=== PATIENT | female | born 1995 | race Caucasian/White ===

== ENCOUNTER 2017-03-11 18:20 | Emergency (ER) | payer OTHER ==
[2017-03-11 18:25] VITALS: BMI 27.8
[2017-03-11] MEDS ORDERED: DEXTROSE 5%-LACTATED RINGERS 500 ML IV ONE (20:30)
[2017-03-11 20:42] VITALS: BP 121/67; PULSE 90; TEMP 98.8
[2017-03-11] MEDS: BETAMET ACET/BETAMET NA PH 30 MG/5 ML VIAL IM ONE (21:10)
[2017-03-11] MEDS ORDERED: DEXTROSE 5%-LACTATED RINGERS 1,000 ML IV SCH (21:30)
[2017-03-11] MEDS ORDERED: AMPICILLIN - 2 GM in SODIUM CHLORIDE 100 ML IVPB ONE (21:30)
[2017-03-11 21:51] LABS: URINE APPEARANCE SLCLOUDY; URINE BILIRUBIN NEGATIVE (NEGATIVE); URINE BLOOD NEGATIVE (NEGATIVE); URINE COLOR DKYELLOW; URINE GLUCOSE (UA) NEGATIVE (NEGATIVE); URINE KETONE NEGATIVE (NEGATIVE); URINE LEUK ESTERASE TRACE (NEGATIVE); URINE NITRITE NEGATIVE (NEGATIVE); URINE PROTEIN NEGATIVE (NEGATIVE); URINE UROBILINOGEN NEGATIVE mg/dL (0.2-1.0)
[2017-03-11 21:53] LABS: URINE MUCUS RARE; URINE RBC 1/HPF /hpf (0-3); URINE WBC 5/HPF /hpf (3-5)
[2017-03-12] MEDS: BETAMET ACET/BETAMET NA PH 30 MG/5 ML VIAL IM ONE (19:55)
== END 2017-03-12 00:20 | disposition home or self-care (01) ==
LOC: JER 18:20
DX: O26.893 Other specified pregnancy related conditions, third trimester (principal); Z3A.28 28 weeks gestation of pregnancy
CPT/HCPCS: 76815-TC; 76817-TC; 81003; 81015; 87086; 99281-25

== ENCOUNTER 2017-11-19 07:28 | Emergency (ER) | payer OTHER ==
[2017-11-19 08:35] VITALS: BP 157/78; PULSE 90; TEMP 98.2; BMI 26.6
--- NOTE | 2017-11-19 09:03 | PDOC ---
History of Present Illness - General Chief Complaint: Shortness of Breath Stated Complaint: S.O.B. Time Seen by Provider: 11/19/17 08:40 History Source: Patient Exam Limitations: No Limitations - History of Present Illness Initial Comments: 11/19/17 08:59 This is a 21-year-old female without significant medical history of seizures presents to the emergency departments with 4 days of progressively worsening epigastric pain. She states the pain came on suddenly with a level of 4/10 and is slowly progressed over the 4 days to currently 9/and. Patient states pain worsens with deep inspiration, swallowing, coughing. Patient states she has associated chest tightness with this epigastric pain. Patient tried taking over- the-counter medication with minimal relief of symptoms. Patient reports having a dry cough as well. She denies fevers, chills, nausea, vomiting. Past History - Past Medical History Allergies/Adverse Reactions: Allergies Allergy/AdvReac Type Severity Reaction Status Date / Time No Known Allergies Allergy Verified 11/19/17 08:33 Home Medications: Ambulatory Orders Ethosuximide 250 mg PO BID 05/01/17 Asthma: No Cancer: No Cardiac Disorders: No COPD: No Diabetes: No HTN: No Seizures: Yes (UNDER CARE DR BILLINGSLEY) Thyroid Disease: No - Reproductive History (#): 2 Para: 0 Therapeutic (s) & number: (1) Spontaneous : 0 - Immunization History Immunization Up to Date: Yes - Suicide/Smoking/Psychosocial Hx Smoking History: Never smoked Have you smoked in the past 12 months: No Information on smoking cessation initiated: No Hx Alcohol Use: No Drug/Substance Use Hx: No Substance Use Type: None Hx Substance Use Treatment: No Review of Systems - Review of Systems Able to Perform ROS?: Yes Is the patient limited Marshallese proficient: No Constitutional: No: Symptoms Reported HEENTM: No: Symptoms Reported Respiratory: Yes: See HPI Cardiac (ROS): No: Symptoms Reported ABD/GI: Yes: See HPI : No: Symptoms Reported Musculoskeletal: No: Symptoms Reported Integumentary: No: Symptoms Reported Neurological: No: Symptoms reported Endocrine: No: Symptoms Reported Hematologic/Lymphatic: No: Symptoms Reported *Physical Exam - Vital Signs Last Vital Signs Temp Pulse Resp BP Pulse Ox 98.2 F 90 20 157/78 100 11/19/17 08:33 11/19/17 08:33 11/19/17 08:33 11/19/17 08:33 11/19/17 08:33 - Physical Exam General Appearance: Yes: Appropriately Dressed. No: Apparent Distress HEENT: positive: Normal ENT Inspection Neck: positive: Trachea midline, Supple Respiratory/Chest: positive: Lungs Clear, Normal Breath Sounds. negative: Respiratory Distress, Accessory Muscle Use Cardiovascular: positive: Regular Rhythm, Regular Rate. negative: Murmur Gastrointestinal/Abdominal: positive: Normal Bowel Sounds, Tender (epigastrum), Soft Extremity: positive: Normal Capillary Refill, Normal Inspection Integumentary: positive: Normal Color, Dry, Warm Neurologic: positive: Alert, Normal Response ED Treatment Course - LABORATORY CBC & Chemistry Diagram: 11/19/17 09:00 11/19/17 09:00 Medical Decision Making - Medical Decision Making 11/19/17 09:03 A/P: 21-year-old woman with 4 days of epigastric pain and chest tightness Lungs clear to auscultation bilaterally No chest tenderness elicited. Tenderness to the epigastric region EKG, chest x-ray, urine, labs, ultrasound 11/19/17 11:22 Ultrasound as read by Dr. Rich: Unremarkable examination. No gallstones are identified. Chest x-rays read by Dr. Rich: Frontal view of the chest was obtained. Compared to prior chest x-ray dated 04/2017 the cardiac silhouette is within normal limits in size. The lungs are clear. Mediastinum and visualized osseous structures appear intact. Impression: Unremarkable examination. EKG is sinus rhythm the rate of 82. Normal intervals noted Laboratory testing notable for elevated WBC at 13.9 without shift. This is likely reactive. Troponin is less than 0.02. I will discharge the patient home to continue follow-up with her primary doctor. Patient verbalized understanding of discharge instructions. *DC/Admit/Observation/Transfer Diagnosis at time of Disposition: Gastritis Qualifiers: Gastritis type: unspecified gastritis Chronicity: acute Gastritis bleeding: presence of bleeding unspecified Qualified Code(s): K29.00 - Acute gastritis without bleeding - Discharge Dispostion Disposition: HOME Condition at time of disposition: Stable Decision to Admit order: No - Referrals Referrals: Freedom Sears MD [Primary Care Provider] - - Patient Instructions Printed Discharge Instructions: DI for Gastritis Additional Instructions: Eat a bland diet until symptoms have resolved. Make an appointment with her primary doctor for continued evaluation. Talk to your primary care doctor about a referral for a base loader for continued evaluation. Return to emergency department for any persistent or worsening symptoms. Thank you very much for choosing a provider emergent health care needs. - Post Discharge Activity
[2017-11-19 09:28] LABS: BASO % 0.3 % (0-2.0); HEMATOCRIT 41.9 % (32.4-45.2); HEMOGLOBIN 13.7 GM/dL (10.7-15.3); LYMPH % 10.7 % (8-40); MCH 28.8 pg (25.7-33.7); MCHC 32.6 g/dl (32.0-36.0); MEAN CELL VOLUME 88.3 fl (80-96); MEAN PLT VOLUME 8.9 fl (7.5-11.1); MONO % 7.1 % (3.8-10.2); NEUT % 78.9 % (42.8-82.8); PLATELET COUNT 284 K/MM3 (134-434); RBC 4.74 M/mm3 (3.60-5.2); WHITE BLOOD COUNT 13.9 K/mm3 (4.0-10.0)
[2017-11-19 09:49] LABS: ALBUMIN 3.7 g/dl (3.4-5.0); ALK PHOS 127 U/L (45-117); ANION GAP 5 (8-16); BILIRUBIN,TOTAL 0.3 mg/dL (0.2-1.0); BLOOD UREA NITROGEN 8 mg/dL (7-18); CALCIUM 8.5 mg/dL (8.5-10.1); CHLORIDE 104 mmol/L (98-107); CO2 28 mmol/L (21-32); CREATININE 0.7 mg/dL (0.55-1.02); GLUCOSE,RANDOM 122 mg/dL (74-106); LIPASE 121 U/L (73-393); POTASSIUM 4.3 mmol/L (3.5-5.1); SGOT/AST 11 U/L (15-37); SGPT/ALT 16 U/L (12-78); SODIUM 137 mmol/L (136-145); TOT PROT 7.2 g/dl (6.4-8.2)
[2017-11-19 10:07] LABS: URINE APPEARANCE SLCLOUDY; URINE BILIRUBIN NEGATIVE (<2.0 mg/dL); URINE COLOR YELLOW; URINE GLUCOSE (UA) NEGATIVE (NEGATIVE); URINE KETONE NEGATIVE (NEGATIVE); URINE NITRITE NEGATIVE (NEGATIVE); URINE PROTEIN NEGATIVE (NEGATIVE); URINE UROBILINOGEN NEGATIVE mg/dL (0.2-1.0)
[2017-11-19 10:11] LABS: URINE LEUK ESTERASE 2+ (NEGATIVE)
[2017-11-19 10:13] LABS: EPI CELLS FEW /HPF (FEW); URINE MUCUS MODERATE
[2017-11-19] MEDS ORDERED: MAG HYDROX/AL HYDROX/SIMETH 30 ML UNIT-DOSE CUP PO ONE (10:47)
[2017-11-19] MEDS ORDERED: MAG HYDROX/AL HYDROX/SIMETH 30 ML UNIT-DOSE CUP ONE (10:47)
[2017-11-19] MEDS ORDERED: LIDOCAINE VISCOUS 2% ORAL/TOP 20 ML UNIT-DOSE CUP MM ONE (10:47)
[2017-11-19] MEDS ORDERED: LIDOCAINE VISCOUS 2% ORAL/TOP 20 ML UNIT-DOSE CUP ONE (11:02)
--- NOTE | 2017-11-20 13:31 | EKG ---
Test Reason : Blood Pressure : / mmHG Vent. Rate : 077 BPM Atrial Rate : 077 BPM P-R Int : 120 ms QRS Dur : 080 ms QT Int : 360 ms P-R-T Axes : 058 -17 017 degrees QTc Int : 407 ms NORMAL SINUS RHYTHM NORMAL ECG NO PREVIOUS ECGS AVAILABLE Confirmed by MARILEE LILLY, ERNESTINA ([id number]) on 11/20/2017 1:30:48 PM Referred By: CON Confirmed By:ERNESTINA HUNT MD
== END 2017-11-19 11:30 | disposition home or self-care (01) ==
LOC: JER 07:28 → JERFT 07:28
DX: K29.00 Acute gastritis without bleeding (principal)
CPT/HCPCS: 36415; 71046-TC-FY; 76705-TC; 80053; 81003; 81015; 82550; 83690; 84484; 84703; 85025; 87086; 93005; 93010; 99281-25

== ENCOUNTER 2018-07-04 23:31 | Emergency (ER) | payer OTHER ==
[2018-07-05] MEDS ORDERED: IBUPROFEN 600 MG TABLET (FP) PO ONE ×2 (00:35→00:40)
--- NOTE | 2018-07-05 00:35 | PDOC ---
History of Present Illness - General Stated Complaint: COLD SYMPTOMS Time Seen by Provider: 07/04/18 23:53 History Source: Patient Exam Limitations: No Limitations - History of Present Illness Initial Comments: 07/05/18 01:23 Patient is a 22-year-old female with past medical history of asthma who presents to the ER for one day of fever, headache, cough and body aches. Patient states she took Motrin earlier this morning with some relief of her symptoms. She states she did not get a flu shot this year. Denies difficulty breathing, shortness of breath, chest pain, nausea, vomiting, diarrhea and constipation. Past History - Travel Traveled outside of the country in the last 30 days: No Close contact w/someone who was outside of country & ill: No - Past Medical History Allergies/Adverse Reactions: Allergies Allergy/AdvReac Type Severity Reaction Status Date / Time No Known Allergies Allergy Verified 07/05/18 00:44 Home Medications: Ambulatory Orders Ethosuximide 250 mg PO BID 05/01/17 Ibuprofen 800 mg PO TID #30 tablet 07/05/18 Oseltamivir Phosphate [Tamiflu] 75 mg PO BID #10 capsule 07/05/18 Asthma: No Cancer: No Cardiac Disorders: No COPD: No Diabetes: No HTN: No Seizures: Yes (UNDER CARE DR BILLINGSLEY) Thyroid Disease: No - Reproductive History (#): 2 Para: 0 Therapeutic (s) & number: (1) Spontaneous : 0 - Immunization History Immunization Up to Date: Yes - Suicide/Smoking/Psychosocial Hx Smoking History: Never smoked Have you smoked in the past 12 months: No Hx Alcohol Use: No Drug/Substance Use Hx: No Substance Use Type: None Hx Substance Use Treatment: No Review of Systems - Review of Systems Able to Perform ROS?: Yes Comments:: 07/05/18 01:22 CONSTITUTIONAL: Present: Fever, chills, body aches Absent: diaphoresis, generalized weakness, malaise, loss of appetite HEENT: Present: rhinorrhea, nasal congestion, throat pain. Absent: difficulty swallowing, mouth swelling, ear pain, eye pain, visual Changes CARDIOVASCULAR: Absent: chest pain, loss of consciousness, palpitations, irregular heart rate, peripheral edema RESPIRATORY: Present: Cough Absent: shortness of breath, dyspnea with exertion, orthopnea, wheezing, stridor, hemoptysis GASTROINTESTINAL: Absent: abdominal pain, abdominal distension, nausea, vomiting, diarrhea, constipation, melena, hematochezia SKIN: Absent: rash, itching, pallor NEUROLOGIC: Present: headache Absent: focal weakness or paresthesias, dizziness, unsteady gait, seizure, mental status changes, bladder or bowel incontinence Is the patient limited Greek proficient: No *Physical Exam - Physical Exam Comments: 07/05/18 01:23 GENERAL: Well developed, well nourished. Awake and alert. No acute distress. HEENT: Normocephalic, atraumatic. PERRLA, EOMI. No conjunctival pallor. Sclera are non- icteric. Moist mucous membranes. Oropharynx is clear. NECK: Supple. Full ROM. No JVD. Carotid pulses 2+ and symmetric, without bruits. No thyromegaly. No lymphadenopathy. CARDIOVASCULAR: Regular rate and rhythm. No murmurs, rubs, or gallops. Distal pulses are 2+ and symmetric. PULMONARY: No evidence of respiratory distress. Lungs clear to auscultation bilaterally. No wheezing, rales or rhonchi. ABDOMINAL: Soft. Non-tender. Non-distended. No rebound or guarding. No organomegaly. Normoactive bowel sounds. MUSCULOSKELETAL Normal range of motion at all joints. No bony deformities or tenderness. No CVA tenderness. EXTREMITIES: No cyanosis. No clubbing. No edema. No calf tenderness. SKIN: Warm and dry. Normal capillary refill. No rashes. No jaundice. NEUROLOGICAL: Alert, awake, appropriate. Cranial nerves 2-12 intact. No deficits to light touch and temperature in face, upper extremities and lower extremities. No motor deficits in the in face, upper extremities and lower extremities. Normoreflexic in the upper and lower extremities. Normal speech. Toes are down- going bilaterally. Gait is normal without ataxia. PSYCHIATRIC: Cooperative. Good eye contact. Appropriate mood and affect. Medical Decision Making - Medical Decision Making 07/05/18 01:21 Pt presents one day with fever, bodyaches and cough Lungs CTAB, -r/r/w Flu A positive Will treat with tamiflu Repeat temp DC home I discussed the physical exam findings, ancillary test results and final diagnoses with the patient. I answered all of the patient's questions. The patient was satisfied with the care received and felt comfortable with the discharge plan and treatment plan. The Patient agrees to follow up with the primary care physician/specialist within 24-72 hours. Return precautions were given. *DC/Admit/Observation/Transfer Diagnosis at time of Disposition: Influenza A - Discharge Dispostion Disposition: HOME Condition at time of disposition: Stable Decision to Admit order: No - Referrals Referrals: Brant Kim MD [Staff Physician] - - Patient Instructions Printed Discharge Instructions: DI for Influenza -- Adult Additional Instructions: You have the flu. This is a viral infection. Your symptoms will last for approximately 7-10 days. Please take the Tamiflu twice a day for 5 days to help reduce the symptoms of the flu. Please take Tylenol every 4 hours for fever. Do not take more than 4000 mg a day. Please take Motrin 600 mg every 6 hours for fever not to exceed 3000 mg a day. Please drink plenty of fluids and get plenty of rest. Follow-up with her primary care doctor this week. Return to the ER if you have difficulty breathing, shortness of breath, vomiting , or if you have any changes in your symptoms. - Post Discharge Activity Forms/Work/School Notes: Back to Work
[2018-07-05 00:44] VITALS: BP 128/74; PULSE 102; TEMP 102; BMI 32.0
== END 2018-07-05 01:47 | disposition home or self-care (01) ==
LOC: JER 23:31
DX: J09.X2 Influenza due to identified novel influenza A virus with other respiratory manifestations (principal); G40.909 Epilepsy, unspecified, not intractable, without status epilepticus
CPT/HCPCS: 87070; 87804; 87880; 99282-25

== ENCOUNTER 2018-10-04 00:12 | Emergency (ER) | payer OTHER ==
[2018-10-04 01:01] VITALS: BP 123/69; PULSE 112; TEMP 98.3; BMI 29.2
[2018-10-04] MEDS ORDERED: SODIUM CHLORIDE 0.9% 500 ML INFUS.BAG IV ONE (01:12)
--- NOTE | 2018-10-04 01:18 | PDOC ---
History of Present Illness - History of Present Illness Initial Comments: This patient is a 22 year old female with PMHx of seizures (well controlled, last one 3 yrs ago, sees neurologist every 3 mo.) , who presents with diarrhea since this morning. She states that she ate at a [place] restaurant this morning and reports multiple episode of diarrhea. Denies sick contacts. 10/04/18 02:07 <Cora Mcdaniels - Last Filed: 10/04/18 02:07> <Юлия Min - Last Filed: 10/04/18 05:19> - General Chief Complaint: Pain, Acute Stated Complaint: ABD PAIN Time Seen by Provider: 10/04/18 01:02 Past History <Cora Mcdaniels - Last Filed: 10/04/18 02:07> - Past Medical History Asthma: No Cancer: No Cardiac Disorders: No COPD: No Diabetes: No HTN: No Seizures: Yes (UNDER CARE DR BILLINGSLEY) Thyroid Disease: No - Reproductive History (#): 2 Para: 0 Therapeutic (s) & number: (1) Spontaneous : 0 - Immunization History Immunization Up to Date: Yes - Suicide/Smoking/Psychosocial Hx Smoking History: Never smoked Have you smoked in the past 12 months: No Information on smoking cessation initiated: No Hx Alcohol Use: No Drug/Substance Use Hx: No Substance Use Type: None Hx Substance Use Treatment: No <Юлия Min - Last Filed: 10/04/18 05:19> - Past Medical History Allergies/Adverse Reactions: Allergies Allergy/AdvReac Type Severity Reaction Status Date / Time No Known Allergies Allergy Verified 10/04/18 00:59 Home Medications: Ambulatory Orders Unobtainable 10/04/18 Review of Systems - Review of Systems Comments:: GENERAL/CONSTITUTIONAL: No fever or chills. No weakness. HEAD, EYES, EARS, NOSE AND THROAT: No change in vision. No ear pain or discharge. No sore throat. CARDIOVASCULAR: No chest pain or shortness of breath. RESPIRATORY: No cough, wheezing, or hemoptysis. GASTROINTESTINAL: No nausea, vomiting, + diarrhea. GENITOURINARY: No dysuria, frequency, or change in urination. MUSCULOSKELETAL: No joint or muscle swelling or pain. No neck or back pain. SKIN: No rash NEUROLOGIC: No headache, vertigo, loss of consciousness, or change in strength/ sensation. ENDOCRINE: No increased thirst. No abnormal weight change. HEMATOLOGIC/LYMPHATIC: No anemia, easy bleeding, or history of blood clots. ALLERGIC/IMMUNOLOGIC: No hives or skin allergy. <Cora Mcdaniels - Last Filed: 10/04/18 02:07> *Physical Exam - Vital Signs Last Vital Signs Temp Pulse Resp BP Pulse Ox 98.3 F 112 H 20 123/69 100 10/04/18 00:20 10/04/18 00:20 10/04/18 00:20 10/04/18 00:20 10/04/18 00:20 - Physical Exam Comments: GENERAL: Awake, alert, and fully oriented, in no acute distress HEAD: No signs of trauma EYES: PERRLA, EOMI, sclera anicteric, conjunctiva clear ENT: Auricles normal inspection, hearing grossly normal, nares patent, oropharynx clear without exudates. Moist mucosa NECK: Normal ROM, supple, no lymphadenopathy, JVD, or masses LUNGS: Breath sounds equal, clear to auscultation bilaterally. No wheezes, and no crackles HEART: Regular rate and rhythm, normal S1 and S2, no murmurs, rubs or gallops ABDOMEN: Soft, nontender, normoactive bowel sounds. No guarding, no rebound. No masses EXTREMITIES: Normal range of motion, no edema. No clubbing or cyanosis. No cords, erythema, or tenderness NEUROLOGICAL: Cranial nerves II through XII grossly intact. Normal speech, normal gait SKIN: Warm, Dry, normal turgor, no rashes or lesions noted. <Cora Mcdaniels - Last Filed: 10/04/18 02:07> - Vital Signs Last Vital Signs Temp Pulse Resp BP Pulse Ox 98.3 F 112 H 20 123/69 100 10/04/18 00:20 10/04/18 00:20 10/04/18 00:20 10/04/18 00:20 10/04/18 00:20 <Юлия Min - Last Filed: 10/04/18 05:19> ED Treatment Course - LABORATORY CBC & Chemistry Diagram: 10/04/18 01:45 10/04/18 01:45 - ADDITIONAL ORDERS Additional order review: 10/04/18 01:45 RBC 4.58 MCV 90.8 MCHC 33.7 RDW 13.7 MPV 9.5 Neutrophils % 76.4 Lymphocytes % 11.3 Monocytes % 6.6 Eosinophils % 5.4 H Basophils % 0.3 - Medications Given in the ED: ED Medications Discontinued Medications Generic Name Dose Route Start Last Admin Trade Name Armaan PRN Reason Stop Dose Admin Sodium Chloride 1,000 ml 10/04/18 01:12 10/04/18 01:26 Normal Saline - IV 10/04/18 01:13 1,000 ml ONCE ONE Administration <Cora Mcdaniels - Last Filed: 10/04/18 02:07> - LABORATORY CBC & Chemistry Diagram: 10/04/18 01:45 10/04/18 01:45 <Юлия Min - Last Filed: 10/04/18 05:19> Medical Decision Making - Medical Decision Making 10/04/18 05:18 Pt is preg positive; LMP last month. Pt likely has hyperemesis gravidum. She states that she will follow with her COUNTER PERSON <Юлия Min - Last Filed: 10/04/18 05:19> *DC/Admit/Observation/Transfer - Attestations Scribe Attestion: 10/04/18 02:12 Documentation prepared by Cora Mcdaniels, acting as medical aide for Юлия Min MD. <Cora Mcdaniels - Last Filed: 10/04/18 02:07> - Discharge Dispostion Decision to Admit order: No <Юлия Min - Last Filed: 10/04/18 05:19> Diagnosis at time of Disposition: Hyperemesis - Discharge Dispostion Disposition: HOME Condition at time of disposition: Stable - Patient Instructions Printed Discharge Instructions: DI for Hyperemesis Gravidarum
[2018-10-04 01:56] LABS: BASO % 0.3 % (0-2.0); EOS % 5.4 % (0-4.5); HEMATOCRIT 41.6 % (32.4-45.2); LYMPH % 11.3 % (8-40); MCH 30.6 pg (25.7-33.7); MCHC 33.7 g/dl (32.0-36.0); MEAN CELL VOLUME 90.8 fl (80-96); MEAN PLT VOLUME 9.5 fl (7.5-11.1); MONO % 6.6 % (3.8-10.2); NEUT % 76.4 % (42.8-82.8); PLATELET COUNT 217 K/MM3 (134-434); RBC 4.58 M/mm3 (3.60-5.2); RDW 13.7 % (11.6-15.6); WHITE BLOOD COUNT 10.2 K/mm3 (4.0-10.0)
[2018-10-04 02:20] LABS: ALBUMIN 3.5 g/dl (3.4-5.0); ALK PHOS 102 U/L (45-117); ANION GAP 9 MMOL/L (8-16); BILIRUBIN,TOTAL 0.2 mg/dL (0.2-1); BLOOD UREA NITROGEN 7 mg/dL (7-18); CALCIUM 8.3 mg/dL (8.5-10.1); CHLORIDE 103 mmol/L (98-107); CO2 25 mmol/L (21-32); CREATININE 0.5 mg/dL (0.55-1.3); GLUCOSE,RANDOM 88 mg/dL (74-106); POTASSIUM 3.7 mmol/L (3.5-5.1); SGOT/AST 26 U/L (15-37); SGPT/ALT 26 U/L (13-61); SODIUM 137 mmol/L (136-145); TOT PROT 6.9 g/dl (6.4-8.2)
== END 2018-10-04 03:15 | disposition home or self-care (01) ==
LOC: JER 00:12
DX: O26.891 Other specified pregnancy related conditions, first trimester (principal); O21.0 Mild hyperemesis gravidarum; Z3A.01 Less than 8 weeks gestation of pregnancy
CPT/HCPCS: 36415; 80053; 84703; 85025; 99282-25

== ENCOUNTER 2019-01-19 13:28 | Emergency (ER) | payer OTHER ==
[2019-01-19 13:37] VITALS: BP 119/72; PULSE 103; TEMP 98.3; BMI 28.2
[2019-01-19] MEDS ORDERED: IBUPROFEN 600 MG TABLET (FP) PO ONE ×2 (14:23→14:35)
--- NOTE | 2019-01-19 15:15 | PDOC ---
History of Present Illness - General Chief Complaint: Sore Throat Stated Complaint: SORE THROAT Time Seen by Provider: 01/19/19 14:15 History Source: Patient Exam Limitations: No Limitations Past History - Past Medical History Allergies/Adverse Reactions: Allergies Allergy/AdvReac Type Severity Reaction Status Date / Time No Known Allergies Allergy Verified 11/17/18 13:43 Home Medications: Ambulatory Orders Amox-Tr/K Cl [Augmentin - 875Mg Tablet] 1 tab PO BID #20 tablet 11/17/18 Budesonide [Rhinocort Allergy] 1 spray NS ONCE #1 spray.pump 11/17/18 Asthma: No Cancer: No Cardiac Disorders: No COPD: No Diabetes: No HTN: No Seizures: Yes (UNDER CARE DR BILLINGSLEY) Thyroid Disease: No - Reproductive History (#): 2 Para: 0 Therapeutic (s) & number: (1) Spontaneous : 0 - Immunization History Immunization Up to Date: Yes - Suicide/Smoking/Psychosocial Hx Smoking History: Never smoked Have you smoked in the past 12 months: No Hx Alcohol Use: No Drug/Substance Use Hx: No Substance Use Type: None Hx Substance Use Treatment: No *Physical Exam - Vital Signs Last Vital Signs Temp Pulse Resp BP Pulse Ox 98.3 F 103 H 18 119/72 100 01/19/19 13:34 01/19/19 13:34 01/19/19 13:34 01/19/19 13:34 01/19/19 13:34 - Physical Exam General Appearance: No: Apparent Distress HEENT: positive: Normal Voice, Pharyngeal Erythema. negative: Muffled/Hoarse voice, Tonsillar Exudate, Tonsillar Erythema Respiratory/Chest: positive: Lungs Clear, Normal Breath Sounds. negative: Respiratory Distress Cardiovascular: positive: Regular Rhythm, Regular Rate, S1, S2. negative: Murmur Gastrointestinal/Abdominal: positive: Soft. negative: Tender Neurologic: positive: Alert ED Treatment Course - Medications Given in the ED: ED Medications Discontinued Medications Generic Name Dose Route Start Last Admin Trade Name Freq PRN Reason Stop Dose Admin Ibuprofen 600 mg 01/19/19 14:23 01/19/19 14:36 Motrin - PO 01/19/19 14:24 600 mg ONCE ONE Administration Medical Decision Making - Medical Decision Making 23 y/o F with hx of seizures, asthma presents with body aches and throat pain from last night. Denies fever, cough, congestion, sob, cp, abd pain, n/v. Has not tried taking anything for pain. Did not take any antipyretics today No concern for strep based on exam Likely viral pharyngitis Supportive care discussed Stable for dc 01/19/19 15:09 *DC/Admit/Observation/Transfer Diagnosis at time of Disposition: Viral pharyngitis - Discharge Dispostion Disposition: HOME Condition at time of disposition: Stable Decision to Admit order: No - Referrals - Patient Instructions Printed Discharge Instructions: DI for Viral Pharyngitis Additional Instructions: Thank you for choosing [facility]. It was a pleasure taking care of you. You may take Motrin 600 mg every 6 hours by mouth as needed for mild to moderate pain. Take Motrin with food. Do salt water gargles to help with throat discomfort You may also use lozenges. Follow-up with your doctor in 2 days Return to the Emergency Department if your symptoms worsen or persist or have other concerning symptoms. - Post Discharge Activity
== END 2019-01-19 16:15 | disposition home or self-care (01) ==
LOC: JERFT 13:28
DX: J02.9 Acute pharyngitis, unspecified (principal); B97.89 Other viral agents as the cause of diseases classified elsewhere
CPT/HCPCS: 99281-25

== ENCOUNTER 2019-03-03 15:21 | Emergency (ER) | payer OTHER ==
--- NOTE | 2019-03-03 15:26 | PDOC ---
Rapid Medical Evaluation Time Seen by Provider: 03/03/19 15:22 Medical Evaluation: Allergies Allergy/AdvReac Type Severity Reaction Status Date / Time No Known Allergies Allergy Verified 03/03/19 15:22 03/03/19 15:22 Pt presents to the ER for vaginal bleeding. She states that she was told yesterday that she was by her OB. She notes that she had bleeding this morning with clots. LMP 8/2 Exam: NAD, lower abdominal discomfort Orders: labs, TVUS Pt to proceed to the ER for further evaluation Discharge Disposition - Diagnosis Bleeding in early - Referrals - Patient Instructions - Post Discharge Activity
[2019-03-03 15:27] VITALS: BP 134/60; PULSE 98; TEMP 98.2; BMI 28.4
[2019-03-03 16:00] LABS: BASO % 0.9 % (0-2.0); EOS % 2.1 % (0-4.5); HEMATOCRIT 40.2 % (32.4-45.2); HEMOGLOBIN 13.5 GM/dL (10.7-15.3); LYMPH % 15.9 % (8-40); MCHC 33.5 g/dl (32.0-36.0); MEAN CELL VOLUME 89.5 fl (80-96); MEAN PLT VOLUME 9.3 fl (7.5-11.1); MONO % 6.7 % (3.8-10.2); NEUT % 74.4 % (42.8-82.8); PLATELET COUNT 258 K/MM3 (134-434); RDW 13.3 % (11.6-15.6); WHITE BLOOD COUNT 8.4 K/mm3 (4.0-10.0)
[2019-03-03 16:31] LABS: ALBUMIN 3.5 g/dl (3.4-5.0); BILIRUBIN,TOTAL 0.2 mg/dL (0.2-1); BLOOD UREA NITROGEN 6.4 mg/dL (7-18); CALCIUM 8.6 mg/dL (8.5-10.1); CREATININE 0.7 mg/dL (0.55-1.3); TOT PROT 6.6 g/dl (6.4-8.2)
[2019-03-03 17:06] LABS: URINE APPEARANCE CLEAR; URINE BILIRUBIN NEGATIVE (NEGATIVE); URINE COLOR YELLOW; URINE GLUCOSE (UA) NEGATIVE (NEGATIVE); URINE KETONE TRACE (NEGATIVE); URINE LEUK ESTERASE NEGATIVE (NEGATIVE); URINE NITRITE NEGATIVE (NEGATIVE); URINE PROTEIN NEGATIVE (NEGATIVE); URINE UROBILINOGEN 0.2 mg/dL (0.2-1.0)
--- NOTE | 2019-03-03 18:11 | PDOC ---
History of Present Illness - General Chief Complaint: Vaginal Bleeding Stated Complaint: PREG/VAGINAL BLEEDING Time Seen by Provider: 03/03/19 15:22 History Source: Patient Exam Limitations: No Limitations Past History - Past Medical History Allergies/Adverse Reactions: Allergies Allergy/AdvReac Type Severity Reaction Status Date / Time No Known Allergies Allergy Verified 03/03/19 15:22 Home Medications: Ambulatory Orders Amox-Tr/K Cl [Augmentin - 875Mg Tablet] 1 tab PO BID #20 tablet 11/17/18 Budesonide [Rhinocort Allergy] 1 spray NS ONCE #1 spray.pump 11/17/18 Asthma: No Cancer: No Cardiac Disorders: No COPD: No Diabetes: No HTN: No Seizures: Yes (UNDER CARE DR BILLINGSLEY) Thyroid Disease: No - Reproductive History (#): 2 Para: 0 Therapeutic (s) & number: (1) Spontaneous : 0 - Immunization History Immunization Up to Date: Yes - Suicide/Smoking/Psychosocial Hx Smoking History: Never smoked Have you smoked in the past 12 months: No Hx Alcohol Use: No Drug/Substance Use Hx: No Substance Use Type: None Hx Substance Use Treatment: No *Physical Exam - Vital Signs Last Vital Signs Temp Pulse Resp BP Pulse Ox 98.2 F 98 H 18 134/60 98 03/03/19 15:23 03/03/19 15:23 03/03/19 15:23 03/03/19 15:23 03/03/19 15:23 - Physical Exam General Appearance: No: Apparent Distress Respiratory/Chest: positive: Lungs Clear, Normal Breath Sounds. negative: Respiratory Distress Cardiovascular: positive: Regular Rhythm, Regular Rate, S1, S2. negative: Murmur Female Pelvic Exam: positive: other (small amount of blood in vaginal vault, no active bleeding, cervical os closed) Gastrointestinal/Abdominal: positive: Normal Bowel Sounds, Soft. negative: Tender, Distended, Guarding, Rebound Neurologic: positive: Alert, Normal Mood/Affect ED Treatment Course - LABORATORY CBC & Chemistry Diagram: 03/03/19 15:40 03/03/19 15:40 - ADDITIONAL ORDERS Additional order review: Laboratory Results 03/03/19 03/03/19 15:40 15:40 Sodium 139 Potassium 4.0 Chloride 106 Carbon Dioxide 25 Anion Gap 7 L BUN 6.4 L Creatinine 0.7 Est GFR (CKD-EPI)AfAm 140.55 Est GFR (CKD-EPI)NonAf 121.27 Random Glucose 107 H Calcium 8.6 Total Bilirubin 0.2 AST 13 L ALT 18 Alkaline Phosphatase 100 Total Protein 6.6 Albumin 3.5 Beta HCG, Quant 62802.5 Urine Color Yellow Urine Appearance Clear Urine pH 6.0 Ur Specific [place] 1.035 Urine Protein Negative Urine Glucose (UA) Negative Urine Ketones Trace H Urine Blood Negative Urine Nitrite Negative Urine Bilirubin Negative Urine Urobilinogen 0.2 Ur Leukocyte Esterase Negative 03/03/19 15:40 RBC 4.50 MCV 89.5 MCHC 33.5 RDW 13.3 MPV 9.3 Neutrophils % 74.4 Lymphocytes % 15.9 D Monocytes % 6.7 Eosinophils % 2.1 Basophils % 0.9 Medical Decision Making - Medical Decision Making 23 y/o (hx of 4 abortions, 1 miscarriage), LNMP January (unsure exact date; states sometime in the 1st week), currently presents with vaginal bleeding from yesterday along with lower abdominal cramping. Patient has just used 1 pad today. Patient found out she was via home preg test and saw OB yesterday; states bleeding started after visit with OB. Denies fever, sob, cp , vomiting, urinary complaints Pelvic US shows IUP at 6 weeks RH positive Likely threatened stable for dc 03/03/19 18:10 *DC/Admit/Observation/Transfer Diagnosis at time of Disposition: Threatened - Discharge Dispostion Disposition: HOME Condition at time of disposition: Stable Decision to Admit order: No - Referrals - Patient Instructions Printed Discharge Instructions: DI for Threatened Additional Instructions: Thank you for choosing [facility]. It was a pleasure taking care of you. Your ultrasound shows at 6 weeks Recommend rest; avoid intercourse Continue follow-up with your POLITICAL AIDE Return to the Emergency Department if your symptoms worsen or persist, you have severe abdominal pain, heavier vaginal bleeding or other concerning symptoms. - Post Discharge Activity
== END 2019-03-03 18:30 | disposition home or self-care (01) ==
LOC: JER 15:21
DX: O26.891 Other specified pregnancy related conditions, first trimester (principal); Z3A.01 Less than 8 weeks gestation of pregnancy; O20.0 Threatened abortion
CPT/HCPCS: 36415; 76817-TC; 80053; 81003; 84702; 85025; 86850; 86900; 86901; 87086; 99282-25

== ENCOUNTER 2019-08-14 20:38 | Emergency (ER) | payer OTHER ==
[2019-08-14 20:41] VITALS: BP 127/64; PULSE 72; TEMP 97.8; BMI 26.0
[2019-08-14 22:03] LABS: BASO % 0.5 % (0-2.0); HEMATOCRIT 44.4 % (32.4-45.2); MCH 30.1 pg (25.7-33.7); MCHC 33.8 g/dl (32.0-36.0); MEAN PLT VOLUME 9.4 fl (7.5-11.1); MONO % 7.5 % (3.8-10.2); PLATELET COUNT 233 K/MM3 (134-434); RBC 4.99 M/mm3 (3.60-5.2); RDW 13.5 % (11.6-15.6); WHITE BLOOD COUNT 9.7 K/mm3 (4.0-10.0)
[2019-08-14 22:07] LABS: URINE APPEARANCE CLEAR; URINE BILIRUBIN NEGATIVE (NEGATIVE); URINE COLOR YELLOW; URINE GLUCOSE (UA) NEGATIVE (NEGATIVE); URINE KETONE NEGATIVE (NEGATIVE); URINE LEUK ESTERASE NEGATIVE (NEGATIVE); URINE NITRITE NEGATIVE (NEGATIVE); URINE PROTEIN NEGATIVE (NEGATIVE); URINE UROBILINOGEN 0.2 mg/dL (0.2-1.0)
--- NOTE | 2019-08-14 22:07 | PDOC ---
History of Present Illness - General Chief Complaint: Pain Stated Complaint: ABDOMINAL PAIN Time Seen by Provider: 08/14/19 21:28 History Source: Patient Exam Limitations: No Limitations Past History - Past Medical History Allergies/Adverse Reactions: Allergies Allergy/AdvReac Type Severity Reaction Status Date / Time No Known Allergies Allergy Verified 08/14/19 20:41 Home Medications: Ambulatory Orders Albuterol 0.083% Nebulizer Matilda [Ventolin 0.083% Nebulizer Soln -] 1 neb NEB Q4H PRN #10 vial 09/16/18 Azithromycin [Zithromax -] 250 mg PO UTDICT #6 tab 09/16/18 Methylprednisolone [Medrol Dose Marco Antonio] 4 mg PO ASDIR #21 tablet 09/16/18 Amox-Tr/K Cl [Augmentin - 875Mg Tablet] 1 tab PO BID #20 tablet 11/17/18 Budesonide [Rhinocort Allergy] 1 spray NS ONCE #1 spray.pump 11/17/18 Asthma: No Cancer: No Cardiac Disorders: No COPD: No Diabetes: No HTN: No Seizures: Yes Thyroid Disease: No - Reproductive History (#): 2 Para: 0 Therapeutic (s) & number: (1) Spontaneous : 0 - Immunization History Immunization Up to Date: Yes - Psycho Social/Smoking Cessation Hx Smoking History: Never smoked Have you smoked in the past 12 months: No Hx Alcohol Use: No Drug/Substance Use Hx: No Substance Use Type: None Hx Substance Use Treatment: No *Physical Exam - Vital Signs Last Vital Signs Temp Pulse Resp BP Pulse Ox 97.8 F 72 18 127/64 99 08/14/19 20:39 08/14/19 20:39 08/14/19 20:39 08/14/19 20:39 08/14/19 20:39 - Physical Exam General Appearance: No: Apparent Distress Respiratory/Chest: positive: Lungs Clear, Normal Breath Sounds. negative: Respiratory Distress Cardiovascular: positive: Regular Rhythm, Regular Rate, S1, S2. negative: Murmur Female Pelvic Exam: positive: adnexal tenderness (mild L adnexal pain) Gastrointestinal/Abdominal: positive: Normal Bowel Sounds, Soft. negative: Tender, Distended, Guarding, Rebound Musculoskeletal: negative: CVA Tenderness Neurologic: positive: Alert ED Treatment Course - LABORATORY CBC & Chemistry Diagram: 08/14/19 21:48 08/14/19 21:48 Medical Decision Making - Medical Decision Making 23 y/o F hx of seizures presents with lower abdominal cramps from today. Denies fever, sob, cp, n/v/d, urinary sxs, vaginal bleeding, unusual vaginal discharge. Denies prior abdominal/pelvic surgeries. Is not sure whether she is as states her cycle this month was only 1.5 days, which is unusual for her. Her last normal menstrual cycle was beginning of June (unsure of exact date) R/O ; consider L ovarian cyst Plan: Labs, pelvic US 08/14/19 22:05 UA negative UCG negative CBC unremarkable Pending results of CMP Sent to pelvic US 08/14/19 22:17 Pelvic US: The uterus measures 7.7 x 4.2 x 5.4 cm. There is no evidence of myometrial masses. The endometrium is normal in thickness and measures 9 mm. The right ovary measures 3.1 x 1.2 x 1.3 cm. There are no right ovarian masses. The left ovary measures 3.5 x 2 x 2.1 cm. Left ovarian 1.5 x 1.3 x 1.1 cm follicle. There are no left ovarian masses. There is no free fluid in the pelvis. COLOR DUPLEX: There is satisfactory perfusion to both the left and right ovary with normal appearing arterial and venous spectral waveforms. IMPRESSION: No evidence of ovarian torsion. US unremarkable Patient currently pain free stable for dc 08/14/19 23:28 Discharge - Discharge Information Problems reviewed: Yes Clinical Impression/Diagnosis: Pelvic pain Condition: Stable Disposition: HOME - Admission No - Additional Discharge Information Prescription Drug Monitoring Program (I-STOP) results: I-STOP not reviewed - Follow up/Referral - Patient Discharge Instructions Patient Printed Discharge Instructions: DI for Pelvic Pain Additional Instructions: Thank you for choosing [facility]. It was a pleasure taking care of you. Your labs and ultrasound were unremarkable Continue follow-up with your regular doctor for further evaluation Return to the Emergency Department if your symptoms worsen or persist or have other concerning symptoms. - Post Discharge Activity
--- NOTE | 2019-08-14 22:09 | PDOC ---
*Physical Exam - Vital Signs Last Vital Signs Temp Pulse Resp BP Pulse Ox 97.8 F 72 18 127/64 99 08/14/19 20:39 08/14/19 20:39 08/14/19 20:39 08/14/19 20:39 08/14/19 20:39 ED Treatment Course - LABORATORY CBC & Chemistry Diagram: 08/14/19 21:48 08/14/19 21:48 Medical Decision Making - Medical Decision Making 08/14/19 22:09 Patient seen by the advanced practice provider under my supervision. Ancillary testing reviewed as necessary. I agree with plan as outlined by the advanced practice provider. Discharge - Discharge Information Problems reviewed: Yes Clinical Impression/Diagnosis: Pelvic pain Condition: Stable Disposition: HOME - Follow up/Referral - Patient Discharge Instructions Patient Printed Discharge Instructions: DI for Pelvic Pain Additional Instructions: Thank you for choosing [facility]. It was a pleasure taking care of you. Your labs and ultrasound were unremarkable Continue follow-up with your regular doctor for further evaluation Return to the Emergency Department if your symptoms worsen or persist or have other concerning symptoms. - Post Discharge Activity
[2019-08-14 22:29] LABS: ALBUMIN 3.8 g/dl (3.4-5.0); ALK PHOS 99 U/L (45-117); ANION GAP 8 MMOL/L (8-16); BILIRUBIN,TOTAL 0.2 mg/dL (0.2-1); BLOOD UREA NITROGEN 13.7 mg/dL (7-18); CHLORIDE 105 mmol/L (98-107); CO2 27 mmol/L (21-32); CREATININE 0.8 mg/dL (0.55-1.3); GLUCOSE,RANDOM 70 mg/dL (74-106); SGOT/AST 10 U/L (15-37); SGPT/ALT 17 U/L (13-61); SODIUM 140 mmol/L (136-145); TOT PROT 7.2 g/dl (6.4-8.2)
== END 2019-08-15 00:02 | disposition home or self-care (01) ==
LOC: JER 20:38
DX: R10.2 Pelvic and perineal pain (principal); Z86.69 Personal history of other diseases of the nervous system and sense organs
CPT/HCPCS: 36415; 76830-TC; 80053; 81003; 84702; 84703; 85025; 99284-25

== ENCOUNTER 2020-01-12 20:13 | Emergency (ER) | payer OTHER ==
[2020-01-12 20:21] VITALS: BP 113/66; PULSE 80; TEMP 98; BMI 27.4
[2020-01-12] MEDS ORDERED: ACETAMINOPHEN 500 MG TABLET (FP) PO ONE (20:28)
--- NOTE | 2020-01-12 20:32 | PDOC ---
History of Present Illness - General Chief Complaint: Pain Stated Complaint: ABD PAIN Time Seen by Provider: 01/12/20 20:27 History Source: Patient Exam Limitations: No Limitations - History of Present Illness Travel History: No Initial Comments: 01/12/20 20:29 HISTORY OF PRESENT ILLNESS: 24-year-old 4 para 1 1 who presents emergency department for evaluation of abdominal pain in the setting of . Patient reports a last menstrual period was 11/09/19 and is currently 11 weeks 2 days . Patient reports she has had care and reports that she has a documented IUP from her EDITOR CONTINUITY AND SCRIPT. Patient was seen in urgent care and was referred to emergency department for continued evaluation. Patient denies any vaginal bleeding, vaginal discharge, dysuria, hematuria, rectal bleeding, diarrhea, constipation. No recent travel or sick contacts. PAST MEDICAL HISTORY: Denies past medical history SURGICAL HISTORY: Denies ALLERGIES: No known drug allergies REVIEW OF SYSTEMS General/Constitutional: Denies fever or chills. Denies weakness, weight change. HEENT: Denies change in vision. Denies ear pain or discharge. Denies sore throat. Cardiovascular: Denies chest pain or shortness of breath. Respiratory: Denies cough, wheezing, or hemoptysis. Gastrointestinal: Denies nausea, vomiting, diarrhea or constipation. Denies rectal bleeding. Genitourinary: See HPI Musculoskeletal: Denies joint or muscle swelling or pain. Denies neck or back pain. Skin and breasts: Denies rash or easy bruising. Neurologic: Denies headache, vertigo, loss of consciousness, or loss of sensation. Psychiatric: Denies depression or anxiety. Endocrine: Denies increased thirst. Denies abnormal weight change. Hematologic/Lymphatic: Denies anemia, easy bleeding, or history of blood clots. Allergic/Immunologic: Denies hives or skin allergy. Denies latex allergy. PHYSICAL EXAM General Appearance: Well-appearing, appropriately dressed. No apparent distress, no intoxication. Respiratory/Chest: Lungs CTAB. No shortness of breath, chest tenderness, respiratory distress, accessory muscle use. No crackles, rales, rhonchi, stridor, wheezing, dullness Cardiovascular: RRR. S1, S2. No JVD, murmur, bradycardia, tachycardia. Vascular Pulses: Dorsalis-Pedis (R): 2+, Dorsalis-Pedis (L): 2+ Gastrointestinal/Abdominal: Normal bowel sounds. Abdomen soft, non-distended. No tenderness or rebound tenderness. No organomegaly, pulsatile mass, guarding, hernia, hepatomegaly, splenomegaly. Past History - Medical History Allergies/Adverse Reactions: Allergies Allergy/AdvReac Type Severity Reaction Status Date / Time No Known Allergies Allergy Verified 01/12/20 20:18 Home Medications: Ambulatory Orders Albuterol 0.083% Nebulizer Matilda [Ventolin 0.083% Nebulizer Soln -] 1 neb NEB Q4H PRN #10 vial 09/16/18 Azithromycin [Zithromax -] 250 mg PO UTDICT #6 tab 09/16/18 Methylprednisolone [Medrol Dose Marco Antonio] 4 mg PO ASDIR #21 tablet 09/16/18 Amox-Tr/K Cl [Augmentin - 875Mg Tablet] 1 tab PO BID #20 tablet 11/17/18 Budesonide [Rhinocort Allergy] 1 spray NS ONCE #1 spray.pump 11/17/18 Asthma: No Cancer: No Cardiac Disorders: No COPD: No Diabetes: No HTN: No Seizures: Yes Thyroid Disease: No - Reproductive History (#): 2 Para: 0 Therapeutic (s) & number: (1) Spontaneous : 0 - Immunization History Immunization Up to Date: Yes - Psycho-Social/Smoking History Smoking History: Never smoked Have you smoked in the past 12 months: No - Substance Abuse Hx (Audit-C & DAST Scrn) How often the patient has a drink containing alcohol: Never Score: In Men: 4 or > Positive; In Women: 3 or > Positive: 0 Screen Result (Pos requires Nsg. Audit-10AR): Negative *Physical Exam - Vital Signs Last Vital Signs Temp Pulse Resp BP Pulse Ox 98 F 80 18 113/66 100 01/12/20 20:14 01/12/20 20:14 01/12/20 20:14 01/12/20 20:14 01/12/20 20:14 ED Treatment Course - LABORATORY CBC & Chemistry Diagram: 01/12/20 22:00 01/12/20 22:00 Medical Decision Making - Medical Decision Making 01/12/20 20:30 A/P: 24-year-old woman with abdominal pain at 11 weeks gestation Uterus palpable approximately 3 finger widths below umbilicus. No CVA tenderness Patient is refusing GROUNDS MAINTENANCE SUPERVISOR exam at this time Labs including lipase and beta hCG Urinalysis, urine culture Transvaginal ultrasound Tylenol 975 mg orally now Reassess 01/12/20 23:21 Laboratory Tests 01/12/20 01/12/20 01/12/20 21:31 22:00 22:00 WBC 12.7 H RBC 4.46 Hgb 13.7 Hct 40.5 MCV 90.7 MCH 30.7 MCHC 33.9 RDW 12.8 Plt Count 251 MPV 8.8 Absolute Neuts (auto) 9.9 H Neutrophils % 77.7 Lymphocytes % 13.8 D Monocytes % 5.9 Eosinophils % 2.1 Basophils % 0.5 Nucleated RBC % 0 Sodium 137 Potassium 4.1 Chloride 105 Carbon Dioxide 23 Anion Gap 9 BUN 8.5 Creatinine 0.5 L Est GFR (CKD-EPI)AfAm 155.90 Est GFR (CKD-EPI)NonAf 134.52 Random Glucose 80 Calcium 8.9 Total Bilirubin 0.2 AST 9 L ALT 16 Alkaline Phosphatase 83 Total Protein 6.8 Albumin 3.2 L Beta HCG, Quant 28655.9 Urine Color Yellow Urine Appearance Clear Urine pH 6.5 Ur Specific [place] 1.014 Urine Protein Negative Urine Glucose (UA) Negative Urine Ketones Negative Urine Blood Negative Urine Nitrite Negative Urine Bilirubin Negative Urine Urobilinogen 1.0 Ur Leukocyte Esterase Negative Blood Type 01/12/20 22:00 WBC RBC Hgb Hct MCV MCH MCHC RDW Plt Count MPV Absolute Neuts (auto) Neutrophils % Lymphocytes % Monocytes % Eosinophils % Basophils % Nucleated RBC % Sodium Potassium Chloride Carbon Dioxide Anion Gap BUN Creatinine Est GFR (CKD-EPI)AfAm Est GFR (CKD-EPI)NonAf Random Glucose Calcium Total Bilirubin AST ALT Alkaline Phosphatase Total Protein Albumin Beta HCG, Quant Urine Color Urine Appearance Urine pH Ur Specific [place] Urine Protein Urine Glucose (UA) Urine Ketones Urine Blood Urine Nitrite Urine Bilirubin Urine Urobilinogen Ur Leukocyte Esterase Blood Type A POSITIVE Ultrasound is read by Dr. Castro: Single live intrauterine of 12 weeks 1 day gestational age. heart rate of 140 bpm was calculated. The ovarian cyst are not identified. There is no evidence of adnexal masses or free pelvic fluid collections. I will discharge patient home to follow-up with her EDITOR CONTINUITY AND SCRIPT as needed. I discussed the physical exam findings, ancillary test results and final diagnoses with the patient. I answered all of the patient's questions. The conchis ent was satisfied with the care received and felt comfortable with the discharge plan and treatment plan. The patient will call their primary care physician within 24 hours to arrange follow-up and will return to the Emergency Department with any new, persistent or worsening symptoms. Portions of this note have been documented using voice recognition software. As a result, errors may occur in the telephone maintainer process. Effort has been made to correct all grammatical and telephone maintainer error, but some may have been missed which may produce sporadic inaccurate telephone maintainer or nonsensical phrases. Discharge - Discharge Information Problems reviewed: Yes Clinical Impression/Diagnosis: Epigastric abdominal pain affecting in first trimester Condition: Fair Disposition: HOME - Admission No - Follow up/Referral - Patient Discharge Instructions Additional Instructions: Take your vitamins. Keep well-hydrated. Avoid tobacco and alcohol as well as illegal drugs. Make an appointment with your EDITOR CONTINUITY AND SCRIPT for reevaluation. Return to the emergency department immediately for severe pain, vaginal bleeding that requires more than 2 pads per hour or for any other symptoms. Thank you very much for choosing us to provide your emergent health care needs. - Post Discharge Activity
--- NOTE | 2020-01-12 20:34 | PDOC ---
*Physical Exam - Vital Signs Last Vital Signs Temp Pulse Resp BP Pulse Ox 98 F 80 18 113/66 100 01/12/20 20:14 01/12/20 20:14 01/12/20 20:14 01/12/20 20:14 01/12/20 20:14 ED Treatment Course - LABORATORY CBC & Chemistry Diagram: 01/12/20 22:00 01/12/20 22:00 Medical Decision Making - Medical Decision Making 01/12/20 20:33 Patient seen by the advanced practice provider under my supervision. Ancillary testing reviewed as necessary. I agree with plan as outlined by the advanced practice provider. Discharge - Discharge Information Problems reviewed: Yes Clinical Impression/Diagnosis: Epigastric abdominal pain affecting in first trimester Condition: Fair Disposition: HOME - Follow up/Referral - Patient Discharge Instructions Additional Instructions: Take your vitamins. Keep well-hydrated. Avoid tobacco and alcohol as well as illegal drugs. Make an appointment with your MUSKRAT TRAPPER for reevaluation. Return to the emergency department immediately for severe pain, vaginal bleeding that requires more than 2 pads per hour or for any other symptoms. Thank you very much for choosing us to provide your emergent health care needs. - Post Discharge Activity
[2020-01-12] MEDS ORDERED: ACETAMINOPHEN 325 MG TABLET (FP) ONE (21:27)
[2020-01-12 21:46] LABS: PH,URINE 6.5 (5.0-8.0); URINE APPEARANCE CLEAR; URINE BILIRUBIN NEGATIVE (NEGATIVE); URINE COLOR YELLOW; URINE GLUCOSE (UA) NEGATIVE (NEGATIVE); URINE KETONE NEGATIVE (NEGATIVE); URINE LEUK ESTERASE NEGATIVE (NEGATIVE); URINE NITRITE NEGATIVE (NEGATIVE); URINE PROTEIN NEGATIVE (NEGATIVE)
[2020-01-12 22:17] LABS: BASO % 0.5 % (0-2.0); EOS % 2.1 % (0-4.5); HEMATOCRIT 40.5 % (32.4-45.2); HEMOGLOBIN 13.7 GM/dL (10.7-15.3); LYMPH % 13.8 % (8-40); MCH 30.7 pg (25.7-33.7); MCHC 33.9 g/dl (32.0-36.0); MEAN CELL VOLUME 90.7 fl (80-96); MEAN PLT VOLUME 8.8 fl (7.5-11.1); MONO % 5.9 % (3.8-10.2); NEUT % 77.7 % (42.8-82.8); PLATELET COUNT 251 K/MM3 (134-434); RBC 4.46 M/mm3 (3.60-5.2); RDW 12.8 % (11.6-15.6); WHITE BLOOD COUNT 12.7 K/mm3 (4.0-10.0)
[2020-01-12 22:43] LABS: ALBUMIN 3.2 g/dl (3.4-5.0); BILIRUBIN,TOTAL 0.2 mg/dL (0.2-1); BLOOD UREA NITROGEN 8.5 mg/dL (7-18); CALCIUM 8.9 mg/dL (8.5-10.1); CREATININE 0.5 mg/dL (0.55-1.3); POTASSIUM 4.1 mmol/L (3.5-5.1); TOT PROT 6.8 g/dl (6.4-8.2)
== END 2020-01-12 23:55 | disposition home or self-care (01) ==
LOC: JER 20:13
DX: O99.611 Diseases of the digestive system complicating pregnancy, first trimester (principal)
CPT/HCPCS: 36415; 76801-TC; 80053; 81003; 84702; 85025; 86850; 86900; 86901; 87086; 99284-25

== ENCOUNTER 2020-02-23 18:46 | Emergency (ER) | payer OTHER ==
[2020-02-23] MEDS ORDERED: ACETAMINOPHEN 1000 MG/100 ML VIAL (NON FORMULARY) IVPB ONE (18:54)
[2020-02-23] MEDS ORDERED: SODIUM CHLORIDE 1,000 ML IV STA (18:54)
--- NOTE | 2020-02-23 18:54 | PDOC ---
Rapid Medical Evaluation Time Seen by Provider: 02/23/20 18:50 Medical Evaluation: Allergies Allergy/AdvReac Type Severity Reaction Status Date / Time No Known Allergies Allergy Verified 01/12/20 20:18 02/23/20 18:51 CC: 18 weeks , now with leg and lower back pain, No other complaints, weak and feels thirsty Exam: febrile at 101.2, tachy, no abd tenderness plan: ua. ucx, labs, iv tylenol, ivf, lipase, lactic acid Discharge Disposition - Diagnosis Weakness - Referrals - Patient Instructions - Post Discharge Activity
[2020-02-23 19:02] VITALS: BP 124/73; BMI 28.6
[2020-02-23] MEDS ORDERED: ACETAMINOPHEN 500 MG TABLET (FP) PO ONE (19:13)
--- NOTE | 2020-02-23 19:15 | PDOC ---
History of Present Illness - General Chief Complaint: Respiratory Stated Complaint: 18 WEEKS /FEVER Time Seen by Provider: 02/23/20 18:50 History Source: Patient Exam Limitations: No Limitations - History of Present Illness Initial Comments: 02/23/20 19:15 24yF w PMHx asthma, seizures, chronic back pain, 18w2d presenting w generalized weakness, fevers, chills, back and BLE muscle aches since this afternoon. Saw ELLIOT Montero CLIENT SERVICES ASSISTANT at 1pm today for normal f/u appointment, nonconcerning US. Denies known covid exposure. Didnt take any meds for symptoms. Denies cough, n/v, chest pain, SOB, ABD pain, vaginal bleeding/discharge. Past History - Medical History Allergies/Adverse Reactions: Allergies Allergy/AdvReac Type Severity Reaction Status Date / Time No Known Allergies Allergy Verified 01/12/20 20:18 Home Medications: Ambulatory Orders Albuterol 0.083% Nebulizer Matilda [Ventolin 0.083% Nebulizer Soln -] 1 neb NEB Q4H PRN #10 vial 09/16/18 Azithromycin [Zithromax -] 250 mg PO UTDICT #6 tab 09/16/18 Methylprednisolone [Medrol Dose Marco Antonio] 4 mg PO ASDIR #21 tablet 09/16/18 Amox-Tr/K Cl [Augmentin - 875Mg Tablet] 1 tab PO BID #20 tablet 11/17/18 Budesonide [Rhinocort Allergy] 1 spray NS ONCE #1 spray.pump 11/17/18 Cephalexin Monohydrate [Keflex -] 500 mg PO Q8H 14 Days #42 capsule 02/23/20 Asthma: No Cancer: No Cardiac Disorders: No COPD: No Diabetes: No HTN: No Seizures: Yes Thyroid Disease: No - Reproductive History Is Patient Now?: No (#): 4 Para: 0 Therapeutic (s) & number: (1) Spontaneous : 0 - Immunization History Immunization Up to Date: Yes - Psycho-Social/Smoking History Smoking History: Never smoked Have you smoked in the past 12 months: No Information on smoking cessation initiated: No - Substance Abuse Hx (Audit-C & DAST Scrn) How often the patient has a drink containing alcohol: Never Score: In Men: 4 or > Positive; In Women: 3 or > Positive: 0 Screen Result (Pos requires Nsg. Audit-10AR): Negative In the last yr the pt used illegal drug/Rx for NonMed reason: No Score: Yes response is considered Positive: 0 Screen Result (Positive result requires Nsg. DAST-10): Negative Review of Systems - Review of Systems Constitutional: Yes: Chills, Fever HEENTM: No: Eye Pain, Nose Congestion Respiratory: No: Cough, Shortness of Breath Cardiac (ROS): No: Chest Pain, Palpitations ABD/GI: No: Constipated, Diarrhea, Nausea, Vomiting : No: Burning, Dysuria Musculoskeletal: Yes: Back Pain. No: Joint Pain Integumentary: No: Bruising, Flushing Neurological: No: Headache, Seizure Psychiatric: No: Anxiety, Depression Endocrine: No: Intolerance to Cold, Intolerance to Heat Hematologic/Lymphatic: No: Anemia, Blood Clots *Physical Exam - Vital Signs Last Vital Signs Temp Pulse Resp BP Pulse Ox 101.7 F H 127 H 17 124/73 99 02/23/20 18:50 02/23/20 18:50 02/23/20 18:50 02/23/20 18:50 02/23/20 18:50 - Physical Exam General Appearance: Yes: Nourished, Appropriately Dressed, Mild Distress HEENT: positive: EOMI, EZIO, Normal Voice, Hearing Grossly Normal. negative: Scleral Icterus (R), Scleral Icterus (L) Respiratory/Chest: positive: Lungs Clear, Normal Breath Sounds. negative: Chest Tender, Respiratory Distress, Crackles, Rales, Rhonchi, Stridor, Wheezing Cardiovascular: positive: Regular Rhythm, S1, S2, Tachycardia. negative: Murmur Gastrointestinal/Abdominal: positive: Normal Bowel Sounds, Soft, Distended. negative: Tender Musculoskeletal: negative: CVA Tenderness (R), CVA Tenderness (L) Integumentary: positive: Normal Color, Warm Neurologic: positive: Fully Oriented, Alert, Normal Mood/Affect, Normal Response, Responsive ED Treatment Course - LABORATORY CBC & Chemistry Diagram: 02/23/20 19:42 02/23/20 19:42 Medical Decision Making - Medical Decision Making 02/23/20 19:43 Bedside US - FHR 165, good mvmt WBC 14 w L shift --- 24yF w PMHx asthma, seizures, chronic back pain, 18w2d presenting w generalized weakness, fevers, chills, back and BLE muscle aches since this afternoon. Has UTI, may have covid (low leukocytes). Low concern for influenza (neg) vs PNA (clear lungs). Reassuring US Given tylenol, 1L fluids, rocephin DC home w covid instructions, OBGYN f/u, keflex - pending covid Discharge - Discharge Information Problems reviewed: Yes Clinical Impression/Diagnosis: Suspected COVID-19 virus infection, Generalized body aches UTI (urinary tract infection) Qualifiers: Urinary tract infection type: acute pyelonephritis Qualified Code(s): N10 - A cute pyelonephritis Qualifiers: Weeks of gestation: 15 weeks Qualified Code(s): Z3A.15 - 15 weeks gestation of Condition: Improved Disposition: HOME - Additional Discharge Information Prescriptions: Cephalexin Monohydrate [Keflex -] 500 mg PO Q8H 14 Days #42 capsule - Follow up/Referral Referrals: Lory Rodney PA [Physician Brazer Helper Induction] - - Patient Discharge Instructions Patient Printed Discharge Instructions: DI for Urinary Tract Infection (UTI), [facility]-Coronavirus Instructions, R-[facility] COVID-19 Isolation Protocol Additional Instructions: You have a urine infection. You may also have coronavirus You will be contacted within the next 5 days with the results of your covid te st. Please self-quarantine until you receive your results Drink lots of water Take the prescribed Keflex as directed Take 1000mg tylenol every 6 hours if you have a fever or pain Follow up with your primary care doctor and OBGYN Come back to the ED if you have trouble breathing, worsening chest or abdominal pain, or vaginal bleeding - Post Discharge Activity
[2020-02-23] MEDS ORDERED: ACETAMINOPHEN 325 MG TABLET (FP) ONE (19:47)
--- NOTE | 2020-02-23 19:58 | PDOC ---
Documentation entered by Jhony Martinez SCRIBE, acting as scribe for Nakia Mccullough DO. Nakia Mccullough DO: This documentation has been prepared by the Michelle mukherjee Angel, SCRIBE, under my direction and personally reviewed by me in its entirety. I confirm that the documentation accurately reflects all work, treatment, procedures, and medical decision making performed by me. Attending Attestation - Resident Resident Name: Faustino Peters - ED Attending Attestation I have performed the following: I have examined & evaluated the patient, The case was reviewed & discussed with the resident, I agree w/resident's findings & plan, Exceptions are as noted - HPI HPI: 02/23/20 20:03 The patient is a 24 year old 18w2d female () with a significant past medical history of seizures and asthma who presents to the ED for evaluation of back aches, body aches and fever starting today. The patient states she saw her OBGYN today for a routine follow up which was normal. After she arrived home she developed body aches, back aches and a fever prompting her to come into the ED for evaluation. The patient denies any sick contacts, recent travel or N/V/D. - Physicial Exam PE: 02/23/20 19:49 Gen: aaox3, nad heent: EOMI, MMM, posterior pharynx clear neck: supple, no lymphadenopathy heart; +s1s2 tachy lungs: cta b/l abd: soft, gravid just below the umbilicus, nt/nd ext: no c/c/e, pulses intact - Medical Decision Making 02/23/20 19:49 a/p: 24yo at 18weeks gestation who had a full eval by her LITERATURE TEACHER today who developed a fever after the appt -pt with body aches and fevers -no other symptoms -FHR 165 -good movement on ultrasound -will send labs, covid swab, flu swab, ua, ucx -will monitor and reassess -lungs cta, discussed xray with the patient, will hold off at this time given clear lungs, no cough, no URI symptoms, and 02/23/20 20:23 pt with a uti will start iv rocephin and then dc with oral abx 02/23/20 22:09 flu neg repeat vitals improving will po challenge no cva ttp 02/23/20 22:53 repeat hr in the 90s pt feeling better dc with oral abx Discharge - Discharge Information Problems reviewed: Yes Clinical Impression/Diagnosis: Suspected COVID-19 virus infection, Generalized body aches UTI (urinary tract infection) Qualifiers: Urinary tract infection type: acute pyelonephritis Qualified Code(s): N10 - Acute pyelonephritis Qualifiers: Weeks of gestation: 15 weeks Qualified Code(s): Z3A.15 - 15 weeks gestation of Condition: Improved Disposition: HOME - Admission No - Additional Discharge Information Prescriptions: Cephalexin Monohydrate [Keflex -] 500 mg PO Q8H 14 Days #42 capsule - Follow up/Referral Referrals: Lory Rodney PA [Physician Computer Support Technician] - - Patient Discharge Instructions Patient Printed Discharge Instructions: DI for Urinary Tract Infection (UTI), [facility]-Coronavirus Instructions, R-[facility] COVID-19 Isolation Protocol Additional Instructions: You have a urine infection. You may also have coronavirus You will be contacted within the next 5 days with the results of your covid test. Please self-quarantine until you receive your results Drink lots of water Take the prescribed Keflex as directed Take 1000mg tylenol every 6 hours if you have a fever or pain Follow up with your primary care doctor and OBGYN Come back to the ED if you have trouble breathing, worsening chest or abdominal pain, or vaginal bleeding - Post Discharge Activity
[2020-02-23 20:07] LABS: BASO % 0.2 % (0-2.0); EOS % 0.2 % (0-4.5); HEMATOCRIT 41.4 % (32.4-45.2); HEMOGLOBIN 13.7 GM/dL (10.7-15.3); LYMPH % 4.5 % (8-40); MCH 30.1 pg (25.7-33.7); MCHC 33.1 g/dl (32.0-36.0); MEAN CELL VOLUME 90.9 fl (80-96); MONO % 7.3 % (3.8-10.2); NEUT % 87.8 % (42.8-82.8); PLATELET COUNT 225 K/MM3 (134-434); RBC 4.55 M/mm3 (3.60-5.2); RDW 13.8 % (11.6-15.6); WHITE BLOOD COUNT 14.6 K/mm3 (4.0-10.0)
[2020-02-23 20:19] LABS: EPI CELLS 21 /uL (0-25.1); HYALINE CASTS 1 /uL (0-3.1); URINE APPEARANCE CLEAR; URINE BACTERIA 776 /uL (0-1359); URINE BILIRUBIN NEGATIVE (NEGATIVE); URINE COLOR YELLOW; URINE GLUCOSE (UA) NEGATIVE (NEGATIVE); URINE KETONE NEGATIVE (NEGATIVE); URINE LEUK ESTERASE 2+ (NEGATIVE); URINE NITRITE NEGATIVE (NEGATIVE); URINE PROTEIN NEGATIVE (NEGATIVE); URINE RBC 11 /uL (0-23.9); URINE UROBILINOGEN 0.2 mg/dL (0.2-1.0); URINE WBC 237 /uL (0-25.8)
[2020-02-23] MEDS ORDERED: CEPHALEXIN MONOHYDRATE 500 MG CAPSULE (UD) PO ONE (20:22)
[2020-02-23] MEDS ORDERED: CEFTRIAXONE 1 GM in DEXTROSE 5%-WATER - 100 ML IVPB ONE (20:23)
[2020-02-23] MEDS ORDERED: CEPHALEXIN MONOHYDRATE 250 MG CAPSULE (FP) ONE ×2 (20:29→20:31)
[2020-02-23] MEDS ORDERED: cefTRIAXone SODIUM 1 GM VIAL ONE (20:29)
[2020-02-23 20:35] LABS: BILIRUBIN,TOTAL 0.2 mg/dL (0.2-1); BLOOD UREA NITROGEN 5.4 mg/dL (7-18); CALCIUM 8.4 mg/dL (8.5-10.1); CREATININE 0.7 mg/dL (0.55-1.3); POTASSIUM 3.6 mmol/L (3.5-5.1); TOT PROT 6.6 g/dl (6.4-8.2)
[2020-02-23 22:24] VITALS: PULSE 90; TEMP 98.4
== END 2020-02-23 22:24 | disposition home or self-care (01) ==
LOC: JER 18:46
PROC: 3E02329 Introduction of Other Anti-infective into Muscle, Percutaneous Approach (ICD-10-PCS; principal; 2020-02-23)
PROC: 3E0337Z Introduction of Electrolytic and Water Balance Substance into Peripheral Vein, Percutaneous Approach (ICD-10-PCS; 2020-02-23)
DX: N10 Acute pyelonephritis (principal); Z3A.18 18 weeks gestation of pregnancy
CPT/HCPCS: 36415; 76815; 80053; 81003; 85025; 87086; 87804; 99284-25; U0003

== ENCOUNTER 2020-02-26 14:52 | Emergency (ER) | payer OTHER ==
[2020-02-26 14:59] VITALS: BP 110/63; PULSE 100; TEMP 98.5; BMI 28.6
[2020-02-26] MEDS ORDERED: TETRACAINE 0.5% OPHTH SOLN 2 ML BOTTLE ONE (15:34)
[2020-02-26] MEDS ORDERED: FLUORESCEIN NA 1 EA STRIP ONE (15:34)
[2020-02-26] MEDS ORDERED: TETRACAINE 0.5% HCL 0.6ML DROPPER.BOTTLE OD ONE (16:02)
[2020-02-26] MEDS ORDERED: FLUORESCEIN NA 1 EA STRIP OD ONE (16:02)
[2020-02-26] MEDS ORDERED: ERYTHROMYCIN 0.5% OPHTHALMIC OINTMENT 3.5 GM TUBE OD ONE (16:03)
[2020-02-26] MEDS ORDERED: ERYTHROMYCIN 0.5% OPHTHALMIC OINTMENT 3.5 GM TUBE ONE (16:10)
--- NOTE | 2020-02-26 16:10 | PDOC ---
History of Present Illness - General Chief Complaint: Vaginal Sxs Stated Complaint: PINK EYE / VAG PAIN Time Seen by Provider: 02/26/20 15:20 History Source: Patient Exam Limitations: No Limitations - History of Present Illness Initial Comments: 02/26/20 16:03 HISTORY OF PRESENT ILLNESS: 24-year-old female currently 15 weeks gestation presents to the emergency department for evaluation of right eye redness, tearing and photophobia for the past 3 days. Additionally patient is complaining of vaginal wound for which she was evaluated by her HAMMER MILL OPERATOR and told to place a D ointment on the wound. She denies vaginal discharge, rectal bleeding, dysuria, hematuria. No recent travel or sick contacts. PAST MEDICAL HISTORY: Denies past medical history SURGICAL HISTORY: Denies ALLERGIES: No known drug allergies REVIEW OF SYSTEMS General/Constitutional: Denies fever or chills. Denies weakness, weight change. HEENT: See HPI Cardiovascular: Denies chest pain or shortness of breath. Respiratory: Denies cough, wheezing, or hemoptysis. Gastrointestinal: Denies nausea, vomiting, diarrhea or constipation. Denies rectal bleeding. Genitourinary: Denies dysuria, frequency, or change in urination. Musculoskeletal: Denies joint or muscle swelling or pain. Denies neck or back pain. Skin and breasts: Denies rash or easy bruising. Neurologic: Denies headache, vertigo, loss of consciousness, or loss of sensation. Psychiatric: Denies depression or anxiety. Endocrine: Denies increased thirst. Denies abnormal weight change. Hematologic/Lymphatic: Denies anemia, easy bleeding, or history of blood clots. Allergic/Immunologic: Denies hives or skin allergy. Denies latex allergy. PHYSICAL EXAM General Appearance: Well-appearing, appropriately dressed. No apparent distress, no intoxication. HEENT: EOMI, PERRLA, normal ENT inspection, normal voice, TMs normal, pharynx normal. No conjunctival pallor. Conjunctiva inflamed with scleral injection extending to the limbus. No photophobia, scleral icterus. Neck: Supple. Trachea midline. No tenderness, rigidity, carotid bruit, stridor, lymphadenopathy, or thyromegaly. RUSTIC TERRAZZO SETTER: BIRGIT Casanova present as compliance representative dealer. No abnormalities present. Past History - Medical History Allergies/Adverse Reactions: Allergies Allergy/AdvReac Type Severity Reaction Status Date / Time No Known Allergies Allergy Verified 02/26/20 14:53 Home Medications: Ambulatory Orders Albuterol 0.083% Nebulizer Matilda [Ventolin 0.083% Nebulizer Soln -] 1 neb NEB Q4H PRN #10 vial 09/16/18 Azithromycin [Zithromax -] 250 mg PO UTDICT #6 tab 09/16/18 Methylprednisolone [Medrol Dose Marco Antonio] 4 mg PO ASDIR #21 tablet 09/16/18 Amox-Tr/K Cl [Augmentin - 875Mg Tablet] 1 tab PO BID #20 tablet 11/17/18 Budesonide [Rhinocort Allergy] 1 spray NS ONCE #1 spray.pump 11/17/18 Cephalexin Monohydrate [Keflex -] 500 mg PO Q8H 14 Days #42 capsule 02/23/20 Erythromycin 0.5% Eye Ointment [Erythromycin 0.5% Eye Ointment -] 1 applic OD TID #1 tube 02/26/20 Asthma: No Cancer: No Cardiac Disorders: No COPD: No Diabetes: No HTN: No Seizures: Yes Thyroid Disease: No - Reproductive History Is Patient Now?: Yes (#): 4 Para: 0 Therapeutic (s) & number: (1) Spontaneous : 0 - Immunization History Immunization Up to Date: Yes - Psycho-Social/Smoking History Smoking History: Never smoked Have you smoked in the past 12 months: No - Substance Abuse Hx (Audit-C & DAST Scrn) How often the patient has a drink containing alcohol: Never Score: In Men: 4 or > Positive; In Women: 3 or > Positive: 0 Screen Result (Pos requires Nsg. Audit-10AR): Negative In the last yr the pt used illegal drug/Rx for NonMed reason: No Score: Yes response is considered Positive: 0 Screen Result (Positive result requires Nsg. DAST-10): Negative *Physical Exam - Vital Signs Last Vital Signs Temp Pulse Resp BP Pulse Ox 98.5 F 100 H 18 110/63 100 02/26/20 14:53 02/26/20 14:53 02/26/20 14:53 02/26/20 14:53 02/26/20 14:53 Medical Decision Making - Medical Decision Making 02/26/20 16:06 A/P: 24-year-old woman with right eye corneal abrasion EYE EXAMINATION: Visual acuity: 20/20 in the left eye, 20/20 in the right eye, near, uncorrected The lid and lashes are normal. Extraocular movements are intact. The conjunctiva is erythematous with scleral injection present extending to the limbus. There is a corneal abrasion in the right eye at the 5 o'clock position. There is no abnormal fluorescein uptake. The pupils are equal, round and reactive to light. Vaginal exam performed with BIRGIT Casanova as compliance representative dealer No abnormalities present Erythromycin ointment Discharge home with ophthalmology follow-up and prescription for erythromycin ointment I discussed the physical exam findings, ancillary test results and final diagnoses with the patient. I answered all of the patient's questions. The patient was satisfied with the care received and felt comfortable with the discharge plan and treatment plan. The patient will call their primary care physician within 24 hours to arrange follow-up and will return to the Emergency Department with any new, persistent or worsening symptoms. Portions of this note have been documented using voice recognition software. As a result, errors may occur in the literacy education professor process. Effort has been made to correct all grammatical and literacy education professor error, but some may have been missed which may produce sporadic inaccurate literacy education professor or nonsensical phrases. 02/26/20 16:22 Discharge - Discharge Information Problems reviewed: Yes Clinical Impression/Diagnosis: Corneal abrasion, right Qualifiers: Encounter type: initial encounter Qualified Code(s): S05.01XA - Injury of conjunctiva and corneal abrasion without foreign body, right eye, initial encounter Condition: Fair Disposition: HOME - Admission No - Additional Discharge Information Prescriptions: Erythromycin 0.5% Eye Ointment [Erythromycin 0.5% Eye Ointment -] 1 applic OD TID #1 tube - Follow up/Referral Referrals: Kev Sauer MD [Staff Physician] - - Patient Discharge Instructions Additional Instructions: Rest, avoid rubbing eyes Wash hands, use eye drops as directed, wash hands after use May use eye lubricating drops as often as needed erythromycin ointment, one thin film 3 times a day for 5 days Tylenol or ibuprofen for pain relief Avoid contact with others until redness and discharge is gone from eyes. Followup with ophthalmology in one to 2 days for thorough exam Return to emergency department for worsened pain, swelling, vision problems. - Post Discharge Activity
== END 2020-02-26 16:11 | disposition home or self-care (01) ==
LOC: JERFT 14:52
DX: S05.01XA Injury of conjunctiva and corneal abrasion without foreign body, right eye, initial encounter (principal)
CPT/HCPCS: 99283-25

== ENCOUNTER 2020-07-18 08:40 | Inpatient (IN) | payer OTHER ==
[2020-07-18] MEDS ORDERED: DINOPROSTONE 10 MG VAGINAL SUPPOSITORY VG ONE (09:15)
[2020-07-18 09:27] LABS: BASO % 0.3 % (0-2.0); HEMATOCRIT 36.4 % (32.4-45.2); MCH 28.8 pg (25.7-33.7); MCHC 32.9 g/dl (32.0-36.0); MEAN CELL VOLUME 87.3 fl (80-96); MEAN PLT VOLUME 9.3 fl (7.5-11.1); MONO % 6.6 % (3.8-10.2); NEUT % 78.1 % (42.8-82.8); PLATELET COUNT 189 K/MM3 (134-434); RBC 4.17 M/mm3 (3.60-5.2); RDW 16.6 % (11.6-15.6); WHITE BLOOD COUNT 11.3 K/mm3 (4.0-10.0)
[2020-07-18 09:32] LABS: INR 0.96 (0.83-1.09); PROTHROMBIN TIME (PATIENT) 11.8 SEC (9.7-13.0)
[2020-07-18 09:34] LABS: ACTIVATED PTT 24.3 SECONDS (25.2-36.5)
[2020-07-18 09:46] LABS: BLOOD UREA NITROGEN 5.8 mg/dL (7-18); CALCIUM 8.4 mg/dL (8.5-10.1)
[2020-07-18 09:49] LABS: CREATININE 0.4 mg/dL (0.55-1.3)
[2020-07-18 10:30] VITALS: BMI 34.5
[2020-07-18] MEDS: ELECTROLYTE-148 SOLN 1,000 ML IV SCH (12:20)
[2020-07-19] MEDS: ELECTROLYTE-148 SOLN 1,000 ML IV SCH ×2 (01:30→09:30)
[2020-07-19] MEDS ORDERED: OXYTOCIN 30 UNITS in 0.9% NS 30 UNIT/500 ML INFUS.BAG IVPB ONE ×2 (06:14→09:29)
[2020-07-19] MEDS: ETHOSUXIMIDE 250 MG PO SCH ×2 (08:30→21:10)
[2020-07-19] MEDS ORDERED: BUTORPHANOL TARTRATE 1 MG/ML VIAL IVPB PRN (09:24)
[2020-07-19] MEDS ORDERED: PROMETHAZINE HCL 25 MG/1 ML VIAL ONE (09:29)
[2020-07-19] MEDS ORDERED: BUTORPHANOL TARTRATE 2 MG/ML VIAL ONE ×2 (09:29→19:07)
[2020-07-19] MEDS ORDERED: OXYTOCIN 30 UNITS in 0.9% NS 30 UNIT/500 ML INFUS.BAG IVPB SCH (09:30)
[2020-07-19] MEDS ORDERED: FENTANYL/BUPIVACAINE/NS/PF - PCEA - 50 ML DISP.SYRIN EP ONE (20:26)
[2020-07-19] MEDS ORDERED: PCA PUMP NR ONE (20:26)
[2020-07-19] MEDS ORDERED: BUPIVACAINE HCL/PF 0.25% (2.5MG/ML) 10 ML VIAL ONE (20:30)
[2020-07-19] MEDS: FENTANYL/BUPIVACAINE/NS/PF - PCEA - 50 ML DISP.SYRIN EP SCH (20:50)
[2020-07-19] MEDS ORDERED: NALOXONE HCL 0.4 MG/ML VIAL IVPUSH PRN (20:51)
[2020-07-19] MEDS: LABETALOL HCL 200 MG TABLET (FP) PO SCH (23:35)
[2020-07-19 23:56] LABS: RETICULOCYTES 1.82 % (0.5-1.5)
[2020-07-20] MEDS ORDERED: FENTANYL/BUPIVACAINE/NS/PF - PCEA - 50 ML DISP.SYRIN EP ONE (00:17)
[2020-07-20] MEDS ORDERED: OXYTOCIN 20 UNITS in 0.9% NS 20 UNIT/1,000 ML INFUS.BAG IV ONE (00:30)
[2020-07-20] MEDS ORDERED: BENZOCAINE 20% 57 GM BOTTLE TP PRN (00:43)
[2020-07-20] MEDS ORDERED: CITRIC ACID/SODIUM CITRATE 30 ML UNIT-DOSE CUP PO ONE (00:43)
[2020-07-20] MEDS ORDERED: ACETAMINOPHEN 325 MG TABLET (FP) PO PRN (00:43)
[2020-07-20] MEDS ORDERED: WITCH HAZEL 50% (TUCKS) 40 PAD/JAR PAD TP PRN (00:43)
[2020-07-20] MEDS ORDERED: BENZOCAINE 28 GM HEMORRHOIDAL OINTMENT RC PRN (00:43)
[2020-07-20] MEDS ORDERED: IBUPROFEN 600 MG TABLET (FP) PO PRN ×2 (00:43→04:21)
[2020-07-20] MEDS ORDERED: METHYLERGONOVINE MALEATE 0.2 MG/1 ML AMP IM PRN (00:43)
[2020-07-20] MEDS ORDERED: BISACODYL 10 MG SUPP.RECT PR PRN (00:43)
[2020-07-20] MEDS ORDERED: OXYTOCIN 20 UNITS in 0.9% NS 20 UNIT/1,000 ML INFUS.BAG IV SCH (00:45)
[2020-07-20] MEDS ORDERED: hydrALAZINE HCL 20 MG/ML VIAL IVPUSH ONE (01:01)
[2020-07-20] MEDS ORDERED: LIDO 2%/EPI 1:200000 PRESRVFRE (20 ML SDVIAL) ONE (02:07)
[2020-07-20] MEDS ORDERED: morphine SULFATE/PF 0.5 MG/ML (2cc Syringe - QUVA) ONE ×2 (02:12)
[2020-07-20] MEDS ORDERED: diphenhydrAMINE HCL 25 MG CAPSULE (FP) PO PRN (02:15)
[2020-07-20] MEDS ORDERED: AZITHROMYCIN IVPB 500 MG/250 ML BAG IVPB ONE (02:30)
[2020-07-20 03:36] LABS: CORD BASE EXCESS -2.2 mmol/L (0-2); CORD HCO3 25.6 mmHg (20-29); CORD PCO2 56.1 mmHg (30-78); CORD pH 7.277 (7.14-7.44)
[2020-07-20 03:38] LABS: CORD BASE EXCESS -2.3 mmol/L (0-2); CORD HCO3 22.8 mmHg (20-29); CORD PCO2 40.5 mmHg (30-78); CORD pH 7.369 (7.14-7.44)
[2020-07-20] MEDS ORDERED: oxyCODONE HCL 5 MG TABLET PO PRN (04:21)
[2020-07-20] MEDS: IBUPROFEN 800 MG/8 ML IJ IVPB PRN ×3 (04:30→23:18)
[2020-07-20] MEDS: LABETALOL HCL 200 MG TABLET (FP) PO SCH ×3 (06:06→22:08)
[2020-07-20] MEDS ORDERED: ONDANSETRON 4 MG/2 ML VIAL IVPUSH PRN (09:01)
[2020-07-20] MEDS: ETHOSUXIMIDE 250 MG PO SCH ×2 (09:40→22:08)
[2020-07-20] MEDS ORDERED: NIFEdipine E.R. 30 MG TABLET PO SCH (10:00)
[2020-07-20] MEDS: FENTANYL/BUPIVACAINE/NS/PF - PCEA - 50 ML DISP.SYRIN EP SCH (21:26)
[2020-07-20] MEDS ORDERED: SENNOSIDES/DOCUSATE COMBO (SENNA PLUS) TABLET (UD) PO SCH (22:00)
[2020-07-20] MEDS: SIMETHICONE 80 MG TAB.CHEW (FP) PO PRN (22:09)
[2020-07-21] MEDS ORDERED: oxyCODONE HCL 5 MG TABLET PO PRN ×2 (02:15)
[2020-07-21] MEDS: LABETALOL HCL 200 MG TABLET (FP) PO SCH ×3 (07:58→21:11)
[2020-07-21] MEDS: IBUPROFEN 800 MG/8 ML IJ IVPB PRN (07:58)
[2020-07-21] MEDS: ETHOSUXIMIDE 250 MG PO SCH ×2 (08:02→21:19)
[2020-07-21] MEDS: IBUPROFEN 100 MG/5 ML UNIT DOSE CUPS PO PRN ×2 (16:17→20:47)
[2020-07-21] MEDS: SIMETHICONE 80 MG TAB.CHEW (FP) PO PRN (20:47)
[2020-07-21] MEDS: FENTANYL/BUPIVACAINE/NS/PF - PCEA - 50 ML DISP.SYRIN EP SCH (21:08)
[2020-07-22] MEDS: IBUPROFEN 100 MG/5 ML UNIT DOSE CUPS PO PRN ×3 (02:22→14:07)
[2020-07-22] MEDS: LABETALOL HCL 200 MG TABLET (FP) PO SCH ×2 (06:17→14:07)
[2020-07-22] MEDS: ETHOSUXIMIDE 250 MG PO SCH (09:37)
[2020-07-22] MEDS: SIMETHICONE 80 MG TAB.CHEW (FP) PO PRN (09:37)
[2020-07-22 12:59] VITALS: TEMP 97.8
[2020-07-22 13:21] LABS: BASO % 0.3 % (0-2.0); EOS % 2.6 % (0-4.5); HEMOGLOBIN 10.1 GM/dL (10.7-15.3); MCH 28.7 pg (25.7-33.7); MCHC 32.7 g/dl (32.0-36.0); MEAN CELL VOLUME 87.8 fl (80-96); MEAN PLT VOLUME 8.8 fl (7.5-11.1); MONO % 6.8 % (3.8-10.2); NEUT % 81.3 % (42.8-82.8); PLATELET COUNT 211 K/MM3 (134-434); RBC 3.53 M/mm3 (3.60-5.2); RDW 17.4 % (11.6-15.6); WHITE BLOOD COUNT 14.8 K/mm3 (4.0-10.0)
[2020-07-22 14:05] LABS: ANISOCYTOSIS 1+; MACROCYTOSIS 0; PLATELET ESTIMATE NORMAL
[2020-07-22 14:26] VITALS: BP 141/85; PULSE 88
== END 2020-07-22 14:50 | disposition home or self-care (01) | DRG 540 ==
LOC: JLDR 08:40 → J3W 07-20 05:14
PROVIDERS: ADMIT Obstetrics & Gynecology; ATTEND Obstetrics & Gynecology
PROC: 3E0P7VZ Introduction of Hormone into Female Reproductive, Via Natural or Artificial Opening (ICD-10-PCS; principal; 2020-07-18)
PROC: 10D00Z1 Extraction of Products of Conception, Low, Open Approach (ICD-10-PCS; 2020-07-20)
DX: O13.4 Gestational [pregnancy-induced] hypertension without significant proteinuria, complicating childbirth (principal); O63.1 Prolonged second stage (of labor); O33.5XX0 Maternal care for disproportion due to unusually large fetus, not applicable or unspecified; O32.4XX0 Maternal care for high head at term, not applicable or unspecified; O61.1 Failed instrumental induction of labor; O99.354 Diseases of the nervous system complicating childbirth; G40.909 Epilepsy, unspecified, not intractable, without status epilepticus; Z87.09 Personal history of other diseases of the respiratory system; Z3A.39 39 weeks gestation of pregnancy; Z37.0 Single live birth
CPT/HCPCS: 36415; 36600; 80048; 82803; 82977; 83010; 84450; 84460; 84550; 85025; 85032; 85045; 85610; 85730; 86780; 86850; 86900; 86901; 88307-TC; C9803; U0003

== ENCOUNTER 2021-02-06 18:02 | Emergency (ER) | payer OTHER ==
[2021-02-06 18:35] VITALS: BP 114/67; PULSE 77; TEMP 98.4; BMI 28.3
[2021-02-06 20:35] LABS: URINE APPEARANCE CLEAR; URINE BILIRUBIN NEGATIVE (NEGATIVE); URINE COLOR YELLOW; URINE GLUCOSE (UA) NEGATIVE (NEGATIVE); URINE KETONE TRACE (NEGATIVE); URINE LEUK ESTERASE NEGATIVE (NEGATIVE); URINE NITRITE NEGATIVE (NEGATIVE); URINE PROTEIN NEGATIVE (NEGATIVE)
[2021-02-06 20:38] LABS: HCG,QUALITATIVE URINE Negative
== END 2021-02-06 21:20 | disposition home or self-care (01) ==
LOC: JERFT 18:02
DX: N76.0 Acute vaginitis (principal); R30.0 Dysuria
CPT/HCPCS: 36415; 81003; 84703; 87070; 87086; 87205; 87491; 87591; 87661; 99283-25

== ENCOUNTER 2021-02-16 22:51 | Emergency (ER) | payer OTHER ==
[2021-02-16 22:56] VITALS: BP 130/81; PULSE 103; TEMP 97; BMI 28.3
[2021-02-16] MEDS ORDERED: ALBUTEROL SO4 HFA INHALER IH ONE (23:55)
[2021-02-17] MEDS ORDERED: ALBUTEROL SO4 HFA INHALER IH ONE (00:06)
== END 2021-02-17 01:08 | disposition home or self-care (01) ==
LOC: JER 22:51
PROC: 3E0F7GC Introduction of Other Therapeutic Substance into Respiratory Tract, Via Natural or Artificial Opening (ICD-10-PCS; principal; 2021-02-16)
DX: J45.901 Unspecified asthma with (acute) exacerbation (principal)
CPT/HCPCS: 99284-25; C9803; U0003; U0005

== ENCOUNTER 2021-03-03 18:11 | Emergency (ER) | payer OTHER ==
[2021-03-03 18:35] VITALS: BP 112/66; PULSE 92; TEMP 98.4; BMI 28.3
== END 2021-03-03 20:08 | disposition left against medical advice (07) ==
LOC: JER 18:11 → JERFT 18:11
DX: N92.6 Irregular menstruation, unspecified (principal); R10.9 Unspecified abdominal pain
CPT/HCPCS: 99281-25

== ENCOUNTER 2021-03-05 12:51 | Emergency (ER) | payer OTHER ==
[2021-03-05 13:30] VITALS: TEMP 98.4; BMI 28.3
[2021-03-05] MEDS ORDERED: SODIUM CHLORIDE 0.9% 500 ML INFUS.BAG IV ONE (14:49)
[2021-03-05] MEDS ORDERED: KETOROLAC TROMETHAMINE 30 MG/1 ML VIAL IVPUSH ONE (14:49)
[2021-03-05] MEDS ORDERED: ONDANSETRON 4 MG/2 ML VIAL IVPUSH ONE (14:59)
[2021-03-05] MEDS ORDERED: KETOROLAC TROMETHAMINE 30 MG/1 ML VIAL ONE (15:15)
[2021-03-05] MEDS ORDERED: ONDANSETRON 4 MG/2 ML VIAL ONE (15:15)
[2021-03-05 15:32] LABS: BASO % 0.5 % (0-2.0); EOS % 1.9 % (0-4.5); HEMATOCRIT 43.6 % (32.4-45.2); HEMOGLOBIN 14.8 GM/dL (10.7-15.3); LYMPH % 19.7 % (8-40); MCH 29.9 pg (25.7-33.7); MCHC 33.8 g/dl (32.0-36.0); MEAN CELL VOLUME 88.5 fl (80-96); MEAN PLT VOLUME 8.6 fl (7.5-11.1); MONO % 6.5 % (3.8-10.2); NEUT % 71.4 % (42.8-82.8); PLATELET COUNT 270 10^3/uL (134-434); RBC 4.93 M/mm3 (3.60-5.2); RDW 13.7 % (11.6-15.6)
[2021-03-05 15:39] LABS: URINE APPEARANCE CLEAR; URINE BILIRUBIN NEGATIVE (NEGATIVE); URINE COLOR YELLOW; URINE GLUCOSE (UA) NEGATIVE (NEGATIVE); URINE KETONE NEGATIVE (NEGATIVE); URINE LEUK ESTERASE NEGATIVE (NEGATIVE); URINE NITRITE NEGATIVE (NEGATIVE); URINE PROTEIN NEGATIVE (NEGATIVE)
[2021-03-05 15:41] LABS: HCG,QUALITATIVE URINE Negative
[2021-03-05 15:51] LABS: ALBUMIN 4.1 g/dl (3.4-5.0); BLOOD UREA NITROGEN 10.5 mg/dL (7-18)
[2021-03-05 15:54] LABS: CREATININE 0.7 mg/dL (0.55-1.3)
[2021-03-05 15:55] LABS: BILIRUBIN,TOTAL 0.6 mg/dL (0.2-1); TOT PROT 7.4 g/dl (6.4-8.2)
[2021-03-05 18:54] VITALS: BP 118/77; PULSE 75
== END 2021-03-05 18:55 | disposition home or self-care (01) ==
LOC: JER 12:51
PROC: 3E033GC Introduction of Other Therapeutic Substance into Peripheral Vein, Percutaneous Approach (ICD-10-PCS; principal; 2021-03-05)
DX: R10.30 Lower abdominal pain, unspecified (principal)
CPT/HCPCS: 36415; 76830-TC; 80053; 81003; 84703; 85025; 87086; 87491; 87591; 96374; 96375; 99284-25

== ENCOUNTER 2021-04-24 09:38 | Emergency (ER) | payer OTHER ==
[2021-04-24 09:47] VITALS: BMI 28.3
[2021-04-24] MEDS ORDERED: SODIUM CHLORIDE 1,000 ML IV STA (10:14)
[2021-04-24] MEDS ORDERED: ACETAMINOPHEN 1000 MG/100 ML VIAL IVPB ONE (10:14)
[2021-04-24] MEDS ORDERED: ACETAMINOPHEN INJECTION 100 ML IVPB ONE (10:21)
[2021-04-24 10:58] LABS: BASO % 0.1 % (0-2.0); EOS % 1.6 % (0-4.5); HEMATOCRIT 44.2 % (32.4-45.2); HEMOGLOBIN 15.1 GM/dL (10.7-15.3); LYMPH % 5.8 % (8-40); MCH 30.4 pg (25.7-33.7); MCHC 34.2 g/dl (32.0-36.0); MEAN CELL VOLUME 88.9 fl (80-96); MONO % 4.5 % (3.8-10.2); PLATELET COUNT 246 10^3/uL (134-434); RBC 4.98 M/mm3 (3.60-5.2)
[2021-04-24 11:20] LABS: BLOOD UREA NITROGEN 16.1 mg/dL (7-18)
[2021-04-24 11:23] LABS: CREATININE 0.7 mg/dL (0.55-1.3)
[2021-04-24 11:25] LABS: BILIRUBIN,TOTAL 0.4 mg/dL (0.2-1); TOT PROT 7.5 g/dl (6.4-8.2)
[2021-04-24 12:50] LABS: URINE APPEARANCE CLEAR; URINE BILIRUBIN NEGATIVE (NEGATIVE); URINE COLOR YELLOW; URINE GLUCOSE (UA) NEGATIVE (NEGATIVE); URINE KETONE TRACE (NEGATIVE); URINE LEUK ESTERASE NEGATIVE (NEGATIVE); URINE NITRITE NEGATIVE (NEGATIVE); URINE PROTEIN TRACE (NEGATIVE)
[2021-04-24 13:44] VITALS: BP 108/64; PULSE 76; TEMP 97.9
== END 2021-04-24 13:45 | disposition home or self-care (01) ==
LOC: JER 09:38
PROC: 3E0333Z Introduction of Anti-inflammatory into Peripheral Vein, Percutaneous Approach (ICD-10-PCS; principal; 2021-04-24)
PROC: 3E0337Z Introduction of Electrolytic and Water Balance Substance into Peripheral Vein, Percutaneous Approach (ICD-10-PCS; 2021-04-24)
DX: R10.2 Pelvic and perineal pain (principal); R10.30 Lower abdominal pain, unspecified
CPT/HCPCS: 36415; 76705-TC; 76830-TC; 80053; 81003; 83690; 84703; 85025; 87086; 99285-25; C9803; J0131; U0003; U0005

== ENCOUNTER 2021-06-18 22:21 | Emergency (ER) | payer OTHER ==
[2021-06-18 22:46] VITALS: BP 131/90; PULSE 94; TEMP 98.3; BMI 30.2
[2021-06-19] MEDS ORDERED: ACETAMINOPHEN 500 MG TABLET (FP) PO ONE (00:14)
[2021-06-19] MEDS ORDERED: IBUPROFEN 600 MG TABLET (FP) PO ONE (01:01)
[2021-06-22 02:06] LABS: SARS-CoV-2 NAA Detected (Not Detected)
== END 2021-06-19 01:36 | disposition home or self-care (01) ==
LOC: JER 22:21
DX: M79.10 Myalgia, unspecified site (principal); Z20.822 Contact with and (suspected) exposure to COVID-19
CPT/HCPCS: 87804; 99283-25; C9803; U0003; U0005

== ENCOUNTER 2021-09-27 03:04 | Emergency (ER) | payer OTHER ==
[2021-09-27 03:42] VITALS: BP 141/62; PULSE 92; TEMP 98.1; BMI 27.2
[2021-09-27] MEDS ORDERED: ALBUTEROL SO4 2.5/IPRATROPIUM 0.5 INH SOL 3 ML VIAL.NEB. NEB ONE ×2 (04:13→04:33)
[2021-09-27] MEDS ORDERED: DEXAMETHASONE SOD PHOSPHATE 10 MG/1 ML VIAL IM ONE (04:14)
[2021-09-27] MEDS ORDERED: DEXAMETHASONE SOD PHOSPHATE 10 MG/1 ML VIAL ONE (04:33)
[2021-09-27] MEDS ORDERED: ALBUTEROL SO4 0.083% IH SOL 2.5 MG/3 ML VIAL.NEB. NEB ONE ×2 (04:36→04:39)
[2021-09-27] MEDS ORDERED: ONDANSETRON *ODT* 4 MG TABLET SL ONE (05:23)
[2021-09-27] MEDS ORDERED: ONDANSETRON *ODT* 4 MG TABLET ONE (05:26)
[2021-09-28 22:06] LABS: SARS-CoV-2 NAA Not Detected (Not Detected)
== END 2021-09-27 05:38 | disposition home or self-care (01) ==
LOC: JER 03:04
PROC: 3E023GC Introduction of Other Therapeutic Substance into Muscle, Percutaneous Approach (ICD-10-PCS; principal; 2021-09-27)
PROC: 3E023GC Introduction of Other Therapeutic Substance into Muscle, Percutaneous Approach (ICD-10-PCS; 2021-09-27)
DX: J11.1 Influenza due to unidentified influenza virus with other respiratory manifestations (principal)
CPT/HCPCS: 87804; 99284-25; C9803-CS; J1100; Q0162; U0003; U0005

== ENCOUNTER 2021-09-28 00:12 | Emergency (ER) | payer OTHER ==
[2021-09-28 00:24] VITALS: BP 139/72; PULSE 98; BMI 27.1
[2021-09-28 01:33] VITALS: TEMP 102.9
[2021-09-28] MEDS ORDERED: ACETAMINOPHEN 500 MG TABLET (FP) PO ONE (02:07)
[2021-09-28] MEDS ORDERED: IBUPROFEN 400 MG TABLET (FP) PO ONE ×2 (02:07→02:26)
[2021-09-28] MEDS ORDERED: ALBUTEROL SO4 HFA INHALER IH ONE ×2 (02:08→02:26)
[2021-09-28] MEDS ORDERED: ACETAMINOPHEN 325 MG TABLET (FP) ONE (02:26)
== END 2021-09-28 04:42 | disposition home or self-care (01) ==
LOC: JER 00:12
PROC: 3E0F7GC Introduction of Other Therapeutic Substance into Respiratory Tract, Via Natural or Artificial Opening (ICD-10-PCS; principal; 2021-09-28)
DX: B34.9 Viral infection, unspecified (principal); M79.10 Myalgia, unspecified site
CPT/HCPCS: 99283-25

== ENCOUNTER 2021-11-17 13:46 | Emergency (ER) | payer OTHER ==
[2021-11-17 14:00] VITALS: BP 101/69; PULSE 103; TEMP 98.2; BMI 27.2
[2021-11-17] MEDS ORDERED: SODIUM CHLORIDE 0.9% 500 ML INFUS.BAG IV ONE (15:30)
[2021-11-17] MEDS ORDERED: ACETAMINOPHEN 1000 MG/100 ML BAG IVPB ONE (15:30)
[2021-11-17] MEDS ORDERED: ONDANSETRON 4 MG/2 ML VIAL IVPUSH ONE (15:30)
[2021-11-17] MEDS ORDERED: ONDANSETRON 4 MG/2 ML VIAL ONE (15:34)
[2021-11-17] MEDS ORDERED: ACETAMINOPHEN INJECTION 100 ML IVPB ONE (15:34)
[2021-11-17 16:02] LABS: EOS % 0.5 % (0-4.5); HEMATOCRIT 43.5 % (32.4-45.2); HEMOGLOBIN 14.8 GM/dL (10.7-15.3); LYMPH % 2.6 % (8-40); MCH 30.7 pg (25.7-33.7); MCHC 33.9 g/dl (32.0-36.0); MEAN CELL VOLUME 90.6 fl (80-96); MEAN PLT VOLUME 8.7 fl (7.5-11.1); MONO % 2.4 % (3.8-10.2); NEUT % 94.5 % (42.8-82.8); PLATELET COUNT 210 10^3/uL (134-434); RBC 4.81 M/mm3 (3.60-5.2); WHITE BLOOD COUNT 12.7 K/mm3 (4.0-10.0)
[2021-11-17 16:10] LABS: URINE APPEARANCE CLEAR; URINE BILIRUBIN NEGATIVE (NEGATIVE); URINE COLOR YELLOW; URINE GLUCOSE (UA) NEGATIVE (NEGATIVE); URINE KETONE 1+ (NEGATIVE); URINE LEUK ESTERASE NEGATIVE (NEGATIVE); URINE NITRITE NEGATIVE (NEGATIVE); URINE PROTEIN NEGATIVE (NEGATIVE)
[2021-11-17 16:13] LABS: HCG,QUALITATIVE URINE Negative
[2021-11-17 16:29] LABS: ALBUMIN 4.2 g/dl (3.4-5.0); BLOOD UREA NITROGEN 13.5 mg/dL (7-18); CALCIUM 8.7 mg/dL (8.5-10.1)
[2021-11-17 16:32] LABS: CREATININE 0.6 mg/dL (0.55-1.3)
[2021-11-17 16:34] LABS: BILIRUBIN,TOTAL 0.6 mg/dL (0.2-1); TOT PROT 7.4 g/dl (6.4-8.2)
== END 2021-11-17 17:49 | disposition home or self-care (01) ==
LOC: JER 13:46
PROC: 3E033NZ Introduction of Analgesics, Hypnotics, Sedatives into Peripheral Vein, Percutaneous Approach (ICD-10-PCS; principal; 2021-11-17)
PROC: 3E033GC Introduction of Other Therapeutic Substance into Peripheral Vein, Percutaneous Approach (ICD-10-PCS; 2021-11-17)
DX: R11.2 Nausea with vomiting, unspecified (principal); R19.7 Diarrhea, unspecified
CPT/HCPCS: 36415; 80053; 81003; 83690; 84703; 85025; 87086; 99284-25

== ENCOUNTER 2021-11-18 00:55 | Emergency (ER) | payer OTHER ==
[2021-11-18 01:08] VITALS: BP 104/68; PULSE 96; TEMP 98; BMI 27.2
[2021-11-18] MEDS ORDERED: SODIUM CHLORIDE 0.9% 500 ML INFUS.BAG IV ONE (01:31)
[2021-11-18] MEDS ORDERED: ONDANSETRON 4 MG/2 ML VIAL IVPUSH ONE (01:31)
[2021-11-18] MEDS ORDERED: FAMOTIDINE 20 MG/50 ML IVPB 20 MG/50 ML MG IVPB ONE ×2 (01:31→02:04)
[2021-11-18] MEDS ORDERED: MAG HYDROX/AL HYDROX/SIMETH 30 ML UNIT-DOSE CUP PO ONE (01:31)
[2021-11-18] MEDS ORDERED: ONDANSETRON 4 MG/2 ML VIAL ONE (02:04)
[2021-11-18] MEDS ORDERED: MAG HYDROX/AL HYDROX/SIMETH 30 ML UNIT-DOSE CUP ONE (02:04)
[2021-11-18 03:08] LABS: HEMATOCRIT 38.8 % (32.4-45.2); HEMOGLOBIN 13.4 GM/dL (10.7-15.3); MCH 31.2 pg (25.7-33.7); MCHC 34.6 g/dl (32.0-36.0); MEAN CELL VOLUME 90.2 fl (80-96); MEAN PLT VOLUME 9.1 fl (7.5-11.1); PLATELET COUNT 194 10^3/uL (134-434); RDW 12.9 % (11.6-15.6); WHITE BLOOD COUNT 8.3 K/mm3 (4.0-10.0)
[2021-11-18 03:48] LABS: ANISOCYTOSIS 0; MACROCYTOSIS 0
== END 2021-11-18 03:51 | disposition home or self-care (01) ==
LOC: JER 00:55
PROC: 3E033GC Introduction of Other Therapeutic Substance into Peripheral Vein, Percutaneous Approach (ICD-10-PCS; principal; 2021-11-18)
PROC: 3E033GC Introduction of Other Therapeutic Substance into Peripheral Vein, Percutaneous Approach (ICD-10-PCS; 2021-11-18)
DX: K52.9 Noninfective gastroenteritis and colitis, unspecified (principal)
CPT/HCPCS: 36415; 74176-TC; 85025; 93005; 93010; 96374; 96375; 99285-25

== ENCOUNTER 2022-02-04 01:37 | Emergency (ER) | payer OTHER ==
[2022-02-04 02:08] VITALS: BP 124/69; PULSE 109; RESP 19; TEMP 98.9; BMI 25.4
[2022-02-04 03:32] LABS: PH,URINE 7.5 (5.0-8.0); URINE APPEARANCE CLEAR; URINE BILIRUBIN NEGATIVE (NEGATIVE); URINE COLOR YELLOW; URINE GLUCOSE (UA) NEGATIVE (NEGATIVE); URINE KETONE NEGATIVE (NEGATIVE); URINE LEUK ESTERASE NEGATIVE (NEGATIVE); URINE NITRITE NEGATIVE (NEGATIVE); URINE PROTEIN NEGATIVE (NEGATIVE)
[2022-02-04 03:59] LABS: HCG,QUALITATIVE URINE Negative
== END 2022-02-04 04:43 | disposition home or self-care (01) ==
LOC: JER 01:37
DX: R05.9 Cough, unspecified (principal); B97.4 Respiratory syncytial virus as the cause of diseases classified elsewhere
CPT/HCPCS: 0241U-QW; 81003; 84703; 87086; 99283-25

== ENCOUNTER 2022-06-18 13:44 | Emergency (ER) | payer OTHER ==
[2022-06-18 13:55] VITALS: BP 106/61; PULSE 77; RESP 18; TEMP 98.2; BMI 25.2
[2022-06-18 16:00] LABS: HCG,QUALITATIVE URINE Positive
[2022-06-18 16:01] LABS: PH,URINE 7.5 (5.0-8.0); URINE APPEARANCE TURBID; URINE BILIRUBIN NEGATIVE (NEGATIVE); URINE COLOR YELLOW; URINE GLUCOSE (UA) NEGATIVE (NEGATIVE); URINE KETONE NEGATIVE (NEGATIVE); URINE LEUK ESTERASE NEGATIVE (NEGATIVE); URINE NITRITE NEGATIVE (NEGATIVE); URINE PROTEIN NEGATIVE (NEGATIVE)
[2022-06-18 17:15] LABS: BASO % 0.3 % (0-2.0); EOS % 4.9 % (0-4.5); HEMATOCRIT 43.6 % (32.4-45.2); LYMPH % 14.1 % (8-40); MCH 30.1 pg (25.7-33.7); MCHC 32.1 g/dl (32.0-36.0); MEAN CELL VOLUME 93.9 fl (80-96); MEAN PLT VOLUME 9.1 fl (7.5-11.1); NEUT % 74.7 % (42.8-82.8); PLATELET COUNT 270 10^3/uL (134-434); RBC 4.65 M/mm3 (3.60-5.2); RDW 13.6 % (11.6-15.6); WHITE BLOOD COUNT 11.7 K/mm3 (4.0-10.0)
[2022-06-18 17:24] LABS: INR 1.03 (0.83-1.09); PROTHROMBIN TIME (PATIENT) 11.8 SEC (9.7-13.0)
[2022-06-18 17:27] LABS: ACTIVATED PTT 28.2 SECONDS (25.2-36.5)
[2022-06-18 17:37] LABS: CALCIUM 9.1 mg/dL (8.5-10.1)
[2022-06-18 17:38] LABS: ALBUMIN 3.5 g/dl (3.4-5.0); BLOOD UREA NITROGEN 8.7 mg/dL (7-18)
[2022-06-18 17:41] LABS: CREATININE 0.4 mg/dL (0.55-1.3)
[2022-06-18 17:42] LABS: BILIRUBIN,TOTAL 0.6 mg/dL (0.2-1)
== END 2022-06-18 18:01 | disposition home or self-care (01) ==
LOC: JER 13:44 → JERFT 13:44
DX: O20.9 Hemorrhage in early pregnancy, unspecified (principal); Z3A.09 9 weeks gestation of pregnancy
CPT/HCPCS: 36415; 76830-TC; 80053; 81003; 83735; 84702; 84703; 85025; 85610; 85730; 86850; 86900; 86901; 87086; 99284-25

== ENCOUNTER 2022-08-27 12:40 | Emergency (ER) | payer OTHER ==
[2022-08-27 13:09] VITALS: BP 120/82; PULSE 99; RESP 18; TEMP 98.4; BMI 27.2
[2022-08-27] MEDS ORDERED: SODIUM CHLORIDE 1,000 ML IV STA (14:20)
[2022-08-27] MEDS ORDERED: METOCLOPRAMIDE HCL INJECTION 10 MG/2 ML VIAL IVPUSH ONE (14:20)
[2022-08-27] MEDS ORDERED: METOCLOPRAMIDE HCL INJECTION 10 MG/2 ML VIAL ONE (14:29)
[2022-08-27 15:38] LABS: BASO % 0.4 % (0-2.0); EOS % 3.5 % (0-4.5); HEMATOCRIT 39.9 % (32.4-45.2); HEMOGLOBIN 13.2 GM/dL (10.7-15.3); LYMPH % 13.6 % (8-40); MCH 30.1 pg (25.7-33.7); MCHC 33.1 g/dl (32.0-36.0); MEAN CELL VOLUME 90.9 fl (80-96); MEAN PLT VOLUME 8.8 fl (7.5-11.1); MONO % 5.6 % (3.8-10.2); NEUT % 76.9 % (42.8-82.8); PH,URINE 8.5 (5.0-8.0); PLATELET COUNT 201 10^3/uL (134-434); RDW 13.2 % (11.6-15.6); URINE APPEARANCE CLEAR; URINE BILIRUBIN NEGATIVE (NEGATIVE); URINE COLOR YELLOW; URINE GLUCOSE (UA) NEGATIVE (NEGATIVE); URINE KETONE NEGATIVE (NEGATIVE); URINE LEUK ESTERASE NEGATIVE (NEGATIVE); URINE NITRITE NEGATIVE (NEGATIVE); URINE PROTEIN NEGATIVE (NEGATIVE); URINE UROBILINOGEN 0.2 mg/dL (0.2-1.0); WHITE BLOOD COUNT 11.6 K/mm3 (4.0-10.0)
[2022-08-27 16:01] LABS: ALBUMIN 2.9 g/dl (3.4-5.0); BLOOD UREA NITROGEN 6.8 mg/dL (7-18); CALCIUM 8.2 mg/dL (8.5-10.1)
[2022-08-27 16:04] LABS: CREATININE 0.4 mg/dL (0.55-1.3)
[2022-08-27 16:07] LABS: BILIRUBIN,TOTAL 0.2 mg/dL (0.2-1); TOT PROT 6.2 g/dl (6.4-8.2)
== END 2022-08-27 16:37 | disposition home or self-care (01) ==
LOC: JER 12:40
PROC: 3E033GC Introduction of Other Therapeutic Substance into Peripheral Vein, Percutaneous Approach (ICD-10-PCS; principal; 2022-08-27)
PROC: 3E0337Z Introduction of Electrolytic and Water Balance Substance into Peripheral Vein, Percutaneous Approach (ICD-10-PCS; 2022-08-27)
DX: O26.892 Other specified pregnancy related conditions, second trimester (principal); R42 Dizziness and giddiness; Z3A.18 18 weeks gestation of pregnancy
CPT/HCPCS: 36415; 76815; 80053; 81003; 84702; 85025; 87086; 93005; 93010; 99285-25

== ENCOUNTER 2022-11-22 12:30 | Inpatient (IN) | payer OTHER ==
[2022-11-22] MEDS ORDERED: BETAMET ACET/BETAMET NA PH 30 MG/5 ML VIAL ONE (12:49)
[2022-11-22] MEDS ORDERED: AMPICILLIN SODIUM 2 GM VIAL ONE (12:49)
[2022-11-22] MEDS ORDERED: AMPICILLIN - 2 GM in SODIUM CHLORIDE 100 ML IVPB ONE (13:00)
[2022-11-22] MEDS ORDERED: BETAMET ACET/BETAMET NA PH 30 MG/5 ML VIAL IM ONE (13:31)
[2022-11-22 13:43] LABS: BASO % 0.3 % (0-2.0); EOS % 1.5 % (0-4.5); HEMATOCRIT 35.5 % (32.4-45.2); MCHC 33.7 g/dl (32.0-36.0); MEAN CELL VOLUME 89.1 fl (80-96); MONO % 5.5 % (3.8-10.2); NEUT % 83.7 % (42.8-82.8); PLATELET COUNT 190 10^3/uL (134-434); RBC 3.98 M/mm3 (3.60-5.2); RDW 12.7 % (11.6-15.6); WHITE BLOOD COUNT 12.3 K/mm3 (4.0-10.0)
[2022-11-22 13:54] LABS: EPI CELLS 17 /uL (0-25.1); HYALINE CASTS 0 /uL (0-3.1); PH,URINE 7.5 (5.0-8.0); URINE APPEARANCE CLOUDY; URINE BACTERIA 1666 /uL (0-1359); URINE BILIRUBIN NEGATIVE (NEGATIVE); URINE COLOR YELLOW; URINE GLUCOSE (UA) NEGATIVE (NEGATIVE); URINE KETONE 1+ (NEGATIVE); URINE LEUK ESTERASE 3+ (NEGATIVE); URINE NITRITE NEGATIVE (NEGATIVE); URINE PROTEIN NEGATIVE (NEGATIVE); URINE RBC 6 /uL (0-23.9); URINE UROBILINOGEN 0.2 mg/dL (0.2-1.0); URINE WBC 1018 /uL (0-25.8)
[2022-11-22 14:02] LABS: POTASSIUM 3.7 mmol/L (3.5-5.1)
[2022-11-22 14:04] LABS: ALBUMIN 2.6 g/dl (3.4-5.0); CALCIUM 8.3 mg/dL (8.5-10.1)
[2022-11-22 14:05] LABS: BLOOD UREA NITROGEN 4.2 mg/dL (7-18)
[2022-11-22 14:08] VITALS: BMI 30.7
[2022-11-22 14:08] LABS: CREATININE 0.3 mg/dL (0.55-1.3)
[2022-11-22 14:10] LABS: BILIRUBIN,TOTAL 0.3 mg/dL (0.2-1); TOT PROT 5.9 g/dl (6.4-8.2)
[2022-11-22 14:37] LABS: INR 0.97 (0.83-1.09); PROTHROMBIN TIME (PATIENT) 11.3 SEC (9.7-13.0)
[2022-11-22 14:40] LABS: ACTIVATED PTT 27.2 SECONDS (25.2-36.5)
[2022-11-22] MEDS ORDERED: NALOXONE HCL 0.4 MG/ML VIAL IVPUSH PRN (14:40)
[2022-11-22] MEDS ORDERED: FENTANYL/BUPIVACAINE/NS/PF - PCEA - 50 ML DISP.SYRIN EP ONE ×2 (14:41→19:18)
[2022-11-22] MEDS ORDERED: FENTANYL/BUPIVACAINE/NS/PF - PCEA - 50 ML DISP.SYRIN EP SCH (14:45)
[2022-11-22] MEDS ORDERED: ELECTROLYTE-148 SOLN 1,000 ML IV SCH (14:45)
[2022-11-22] MEDS ORDERED: FENTANYL CITRATE/PF 50 MCG/ML VIAL ONE (14:47)
[2022-11-22 15:10] LABS: SYPHILIS W/ RPR CONF NON-REACTIVE (NONREACTIVE)
[2022-11-22 15:40] LABS: HIV INTERPRETATION NEGATIVE (NEGATIVE)
[2022-11-22] MEDS ORDERED: AMPICILLIN SODIUM 1 GM VIAL ONE ×2 (16:57→21:06)
[2022-11-22] MEDS: AMPICILLIN - 1 GM in SODIUM CHLORIDE 100 ML IVPB SCH ×2 (17:00→21:04)
[2022-11-22] MEDS ORDERED: OXYTOCIN 20 UNITS in 0.9% NS 20 UNIT/1,000 ML INFUS.BAG IV ONE (19:05)
[2022-11-22] MEDS ORDERED: LIDOCAINE HCL 1% PRESERVATIVE FREE - 30ML VIAL ONE (19:05)
[2022-11-22] MEDS ORDERED: SODIUM CHLORIDE 100 ML IVPB ONE (21:06)
[2022-11-22] MEDS ORDERED: BENZOCAINE 28 GM HEMORRHOIDAL OINTMENT TP PRN (21:48)
[2022-11-22] MEDS ORDERED: WITCH HAZEL 50% (TUCKS) 40 PAD/JAR PAD TP PRN (21:48)
[2022-11-22] MEDS ORDERED: BISACODYL 10 MG SUPP.RECT RC PRN (21:48)
[2022-11-22] MEDS ORDERED: IBUPROFEN 600 MG TABLET (FP) PO PRN (21:48)
[2022-11-22] MEDS ORDERED: BENZOCAINE 20% 57 GM BOTTLE TP PRN (21:48)
[2022-11-22] MEDS ORDERED: oxyCODONE HCL 5 MG TABLET PO PRN (21:48)
[2022-11-22] MEDS ORDERED: METHYLERGONOVINE MALEATE 0.2 MG/1 ML AMP IM PRN (21:48)
[2022-11-22] MEDS ORDERED: OXYTOCIN 20 UNITS in 0.9% NS 20 UNIT/1,000 ML INFUS.BAG IV SCH (22:00)
[2022-11-23 00:17] VITALS: RESP 18
[2022-11-23] MEDS: ACETAMINOPHEN 325 MG TABLET (FP) PO PRN ×2 (01:33→11:08)
[2022-11-23 08:37] LABS: HEMATOCRIT 32.4 % (32.4-45.2); HEMOGLOBIN 11.2 GM/dL (10.7-15.3); MCH 30.9 pg (25.7-33.7); MCHC 34.4 g/dl (32.0-36.0); MEAN CELL VOLUME 89.7 fl (80-96); MEAN PLT VOLUME 9.1 fl (7.5-11.1); PLATELET COUNT 194 10^3/uL (134-434); RBC 3.61 M/mm3 (3.60-5.2); RDW 12.9 % (11.6-15.6); WHITE BLOOD COUNT 21.5 K/mm3 (4.0-10.0)
[2022-11-23 10:03] LABS: ANISOCYTOSIS 0; MACROCYTOSIS 0
[2022-11-23] MEDS ORDERED: SENNOSIDES/DOCUSATE COMBO (SENNA PLUS) TABLET (UD) PO PRN (22:00)
[2022-11-24] MEDS: ACETAMINOPHEN 325 MG TABLET (FP) PO PRN ×2 (00:57→09:28)
[2022-11-24 07:35] LABS: HEMATOCRIT 29.9 % (32.4-45.2); HEMOGLOBIN 10.5 GM/dL (10.7-15.3); MCH 31.5 pg (25.7-33.7); MCHC 35.2 g/dl (32.0-36.0); MEAN CELL VOLUME 89.6 fl (80-96); MEAN PLT VOLUME 8.9 fl (7.5-11.1); PLATELET COUNT 181 10^3/uL (134-434); RBC 3.34 M/mm3 (3.60-5.2); WHITE BLOOD COUNT 14.7 K/mm3 (4.0-10.0)
[2022-11-24 09:36] VITALS: BP 113/64; PULSE 80; TEMP 98
== END 2022-11-24 17:20 | disposition home or self-care (01) | DRG 560 ==
LOC: JDEL 12:30 → JLDR 13:17 → J3W 23:20
PROVIDERS: ADMIT Obstetrics & Gynecology; ATTEND Obstetrics & Gynecology
PROC: 10E0XZZ Delivery of Products of Conception, External Approach (ICD-10-PCS; principal; 2022-11-22)
DX: O60.14X0 Preterm labor third trimester with preterm delivery third trimester, not applicable or unspecified (principal); Z3A.32 32 weeks gestation of pregnancy; Z37.0 Single live birth
CPT/HCPCS: 36415; 80053; 81003; 85025; 85027; 85610; 85730; 86780; 86850; 86900; 86901; 87081; 87086; 87389; 87635; 96372

== ENCOUNTER 2023-04-26 18:08 | Emergency (ER) | payer OTHER ==
[2023-04-26 18:28] VITALS: BP 138/62; PULSE 105; RESP 20; TEMP 99.4; BMI 25.2
[2023-04-26] MEDS ORDERED: ACETAMINOPHEN 500 MG TABLET (FP) PO ONE (19:10)
[2023-04-26] MEDS ORDERED: ACETAMINOPHEN 325 MG TABLET (FP) ONE (19:40)
== END 2023-04-26 20:33 | disposition home or self-care (01) ==
LOC: JER 18:08
DX: R53.81 Other malaise (principal); R51.9 Headache, unspecified; M79.10 Myalgia, unspecified site; R09.81 Nasal congestion; R68.83 Chills (without fever); J06.9 Acute upper respiratory infection, unspecified; Z20.822 Contact with and (suspected) exposure to COVID-19
CPT/HCPCS: 0241U-QW; 99283-25

== ENCOUNTER 2023-06-29 12:57 | Emergency (ER) | payer OTHER ==
[2023-06-29 13:09] VITALS: BP 125/65; PULSE 81; RESP 18; TEMP 97.6; BMI 25.8
[2023-06-29] MEDS ORDERED: ONDANSETRON *ODT* 4 MG TABLET SL ONE (14:45)
[2023-06-29] MEDS ORDERED: ONDANSETRON *ODT* 4 MG TABLET ONE (14:47)
[2023-06-29 15:46] LABS: URINE APPEARANCE CLEAR; URINE BILIRUBIN NEGATIVE (NEGATIVE); URINE COLOR YELLOW; URINE GLUCOSE (UA) NEGATIVE (NEGATIVE); URINE KETONE NEGATIVE (NEGATIVE); URINE LEUK ESTERASE NEGATIVE (NEGATIVE); URINE NITRITE NEGATIVE (NEGATIVE); URINE PROTEIN NEGATIVE (NEGATIVE)
[2023-06-29 15:48] LABS: HCG,QUALITATIVE URINE Negative
[2023-06-29] MEDS ORDERED: ACETAMINOPHEN 500 MG TABLET (FP) PO ONE (16:48)
== END 2023-06-29 17:00 | disposition home or self-care (01) ==
LOC: JERFT 12:57
DX: R09.81 Nasal congestion (principal); R11.0 Nausea; R19.7 Diarrhea, unspecified; U07.1 COVID-19
CPT/HCPCS: 0241U-QW; 81003; 84703; 87086; 99283-25; Q0162

== ENCOUNTER 2023-07-01 12:38 | Emergency (ER) | payer OTHER ==
[2023-07-01 13:36] VITALS: TEMP 98; BMI 25.8
[2023-07-01] MEDS ORDERED: ACETAMINOPHEN 500 MG TABLET (FP) PO ONE (13:58)
[2023-07-01] MEDS ORDERED: ACETAMINOPHEN 500 MG TABLET (FP) ONE (14:05)
[2023-07-01] MEDS ORDERED: ALBUTEROL SO4 HFA INHALER IH ONE ×2 (14:22→15:56)
[2023-07-01 16:05] VITALS: BP 107/70; PULSE 73; RESP 18
== END 2023-07-01 16:07 | disposition home or self-care (01) ==
LOC: JER 12:38
PROC: 3E0F7GC Introduction of Other Therapeutic Substance into Respiratory Tract, Via Natural or Artificial Opening (ICD-10-PCS; principal; 2023-07-01)
DX: U07.1 COVID-19 (principal); R05.9 Cough, unspecified; R06.02 Shortness of breath; R07.89 Other chest pain
CPT/HCPCS: 71045-TC-FY; 84703; 93005; 93010; 94640; 99285-25

== ENCOUNTER 2023-07-10 21:36 | Emergency (ER) | payer OTHER ==
[2023-07-10 21:49] VITALS: BMI 25.8
[2023-07-10] MEDS ORDERED: ACETAMINOPHEN 500 MG TABLET (FP) PO ONE (22:21)
[2023-07-10 22:36] LABS: BASO % 0.8 % (0-2.0); EOS % 4.2 % (0-4.5); HEMATOCRIT 43.4 % (32.4-45.2); HEMOGLOBIN 14.3 GM/dL (10.7-15.3); LYMPH % 17.8 % (8-40); MCH 29.7 pg (25.7-33.7); MCHC 33.1 g/dl (32.0-36.0); MEAN CELL VOLUME 89.9 fl (80-96); MEAN PLT VOLUME 8.6 fl (7.5-11.1); MONO % 6.3 % (3.8-10.2); NEUT % 70.9 % (42.8-82.8); PLATELET COUNT 294 10^3/uL (134-434); RBC 4.82 M/mm3 (3.60-5.2); RDW 13.3 % (11.6-15.6); WHITE BLOOD COUNT 11.8 K/mm3 (4.0-10.0)
[2023-07-10] MEDS ORDERED: ACETAMINOPHEN 325 MG TABLET (FP) ONE (22:36)
[2023-07-10 22:37] LABS: PH,URINE 6.5 (5.0-8.0); URINE APPEARANCE CLEAR; URINE BILIRUBIN NEGATIVE (NEGATIVE); URINE COLOR YELLOW; URINE GLUCOSE (UA) NEGATIVE (NEGATIVE); URINE KETONE NEGATIVE (NEGATIVE); URINE LEUK ESTERASE NEGATIVE (NEGATIVE); URINE NITRITE NEGATIVE (NEGATIVE); URINE PROTEIN NEGATIVE (NEGATIVE); URINE UROBILINOGEN 0.2 mg/dL (0.2-1.0)
[2023-07-10 22:54] LABS: POTASSIUM 4.3 mmol/L (3.5-5.1)
[2023-07-10 22:56] LABS: CALCIUM 9.2 mg/dL (8.5-10.1)
[2023-07-10 22:57] LABS: BLOOD UREA NITROGEN 10.9 mg/dL (7-18)
[2023-07-10 23:00] LABS: CREATININE 0.7 mg/dL (0.55-1.3)
[2023-07-10 23:01] LABS: BILIRUBIN,TOTAL 0.2 mg/dL (0.2-1); TOT PROT 7.5 g/dl (6.4-8.2)
[2023-07-11 01:02] LABS: INR 1.1 (0.83-1.09); PROTHROMBIN TIME (PATIENT) 12.7 SEC (9.7-13.0)
[2023-07-11 01:04] LABS: ACTIVATED PTT 28.1 SECONDS (25.2-36.5)
[2023-07-11 01:48] VITALS: BP 106/53; PULSE 78; RESP 18; TEMP 98.5
== END 2023-07-11 02:49 | disposition home or self-care (01) ==
LOC: JER 21:36
DX: N93.9 Abnormal uterine and vaginal bleeding, unspecified (principal)
CPT/HCPCS: 36415; 76830-TC; 80053; 81003; 84702; 85025; 85610; 85730; 86850; 86900; 86901; 99284-25

== ENCOUNTER 2023-07-13 12:07 | Emergency (ER) | payer OTHER ==
[2023-07-13 12:24] VITALS: BMI 25.8
[2023-07-13 15:23] LABS: BASO % 0.8 % (0-2.0); EOS % 6.2 % (0-4.5); HEMATOCRIT 42.1 % (32.4-45.2); HEMOGLOBIN 13.8 GM/dL (10.7-15.3); MCH 29.4 pg (25.7-33.7); MCHC 32.7 g/dl (32.0-36.0); MEAN CELL VOLUME 89.8 fl (80-96); MEAN PLT VOLUME 8.7 fl (7.5-11.1); MONO % 7.2 % (3.8-10.2); NEUT % 68.8 % (42.8-82.8); PLATELET COUNT 296 10^3/uL (134-434); RBC 4.69 M/mm3 (3.60-5.2); RDW 13.6 % (11.6-15.6); WHITE BLOOD COUNT 8.3 K/mm3 (4.0-10.0)
[2023-07-13 15:30] LABS: INR 1.06 (0.83-1.09); PROTHROMBIN TIME (PATIENT) 12.3 SEC (9.7-13.0)
[2023-07-13 15:32] LABS: ACTIVATED PTT 28.5 SECONDS (25.2-36.5)
[2023-07-13 15:39] LABS: POTASSIUM 4.3 mmol/L (3.5-5.1)
[2023-07-13 15:41] LABS: CALCIUM 8.7 mg/dL (8.5-10.1)
[2023-07-13 15:42] LABS: ALBUMIN 3.6 g/dl (3.4-5.0); BLOOD UREA NITROGEN 10.3 mg/dL (7-18)
[2023-07-13 15:45] LABS: CREATININE 0.6 mg/dL (0.55-1.3)
[2023-07-13 15:46] LABS: BILIRUBIN,TOTAL 0.3 mg/dL (0.2-1)
[2023-07-13 15:47] LABS: TOT PROT 6.8 g/dl (6.4-8.2)
[2023-07-13 17:46] VITALS: BP 110/62; PULSE 83; RESP 16; TEMP 98.4
== END 2023-07-13 17:48 | disposition home or self-care (01) ==
LOC: JER 12:07
DX: O20.9 Hemorrhage in early pregnancy, unspecified (principal); Z3A.01 Less than 8 weeks gestation of pregnancy
CPT/HCPCS: 36415; 76817-TC; 80053; 84702; 85025; 85610; 85730; 86850; 86900; 86901; 99284-25

== ENCOUNTER 2023-12-12 00:21 | Emergency (ER) | payer OTHER ==
[2023-12-12 00:32] VITALS: BP 112/62; PULSE 75; RESP 20; TEMP 98.4; BMI 25.2
[2023-12-12] MEDS ORDERED: ACETAMINOPHEN 325 MG TABLET (FP) ONE (01:23)
[2023-12-12] MEDS: ACETAMINOPHEN 500 MG TABLET (FP) PO ONE (01:30)
[2023-12-12] MEDS: BENZONATATE 200 MG CAPSULE PO ONE (01:51)
== END 2023-12-12 03:14 | disposition home or self-care (01) ==
LOC: JER 00:21
DX: J02.9 Acute pharyngitis, unspecified (principal); R05.9 Cough, unspecified; Z20.822 Contact with and (suspected) exposure to COVID-19
CPT/HCPCS: 0241U-QW; 87651; 99283-25

== ENCOUNTER 2023-12-18 19:29 | Emergency (ER) | payer OTHER ==
[2023-12-18 19:36] VITALS: BP 123/73; PULSE 95; RESP 16; TEMP 99.4; BMI 25.2
[2023-12-18] MEDS ORDERED: BENZONATATE 200 MG CAPSULE PO ONE (20:32)
[2023-12-18] MEDS ORDERED: ALBUTEROL SO4 2.5/IPRATROPIUM 0.5 INH SOL 3 ML VIAL.NEB. NEB ONE (20:36)
[2023-12-18] MEDS: ALBUTEROL SO4 2.5/IPRATROPIUM 0.5 INH SOL 3 ML VIAL.NEB. NEB SCH (20:38)
[2023-12-18 20:52] LABS: THROAT:GRP A STREP NOT DETECTED (NOTDETECTED)
== END 2023-12-18 21:50 | disposition home or self-care (01) ==
LOC: JERFT 19:29
PROC: 3E0F7GC Introduction of Other Therapeutic Substance into Respiratory Tract, Via Natural or Artificial Opening (ICD-10-PCS; principal; 2023-12-18)
DX: R05.9 Cough, unspecified (principal); R06.02 Shortness of breath; R53.1 Weakness; R50.9 Fever, unspecified; R07.9 Chest pain, unspecified; J02.9 Acute pharyngitis, unspecified; R09.81 Nasal congestion; Z20.822 Contact with and (suspected) exposure to COVID-19
CPT/HCPCS: 0241U-QW; 71046-TC-FY; 87651; 93005; 93010; 99285-25

== ENCOUNTER 2024-06-18 21:03 | Emergency (ER) | payer OTHER ==
[2024-06-18 21:08] VITALS: BP 121/66; PULSE 66; RESP 20; TEMP 98.4; BMI 25.2
== END 2024-06-18 22:56 | disposition home or self-care (01) ==
LOC: JERFT 21:03
DX: L02.211 Cutaneous abscess of abdominal wall (principal)
CPT/HCPCS: 99283-25

== ENCOUNTER 2024-09-30 00:14 | Emergency (ER) | payer OTHER ==
[2024-09-30 00:18] VITALS: BP 104/83; PULSE 94; RESP 18; TEMP 98.4; BMI 25.2
[2024-09-30] MEDS ORDERED: IBUPROFEN 400 MG TABLET (FP) PO ONE (01:23)
[2024-09-30] MEDS: IBUPROFEN 400 MG TABLET (FP) PO ONE (01:27)
== END 2024-09-30 01:28 | disposition home or self-care (01) ==
LOC: JER 00:14
DX: J02.9 Acute pharyngitis, unspecified (principal); R05.9 Cough, unspecified; R09.89 Other specified symptoms and signs involving the circulatory and respiratory systems; J30.2 Other seasonal allergic rhinitis
CPT/HCPCS: 99283-25

== ENCOUNTER 2024-12-21 23:15 | Emergency (ER) | payer OTHER ==
[~2024-12-21 23:15] MED LIST: LIDOCAINE PATCH REMOVAL MC SCH
[2024-12-21 23:23] VITALS: BP 118/76; PULSE 98; RESP 18; TEMP 98.2; BMI 25.2
[2024-12-22] MEDS ORDERED: KETOROLAC TROMETHAMINE 30 MG/1 ML VIAL ONE
[2024-12-22] MEDS ORDERED: LIDOCAINE 4% PATCH TP ONE
[2024-12-22] MEDS: LIDOCAINE 4% PATCH TP ONE (00:04)
[2024-12-22] MEDS: KETOROLAC TROMETHAMINE 30 MG/1 ML VIAL IM ONE (00:04)
[2024-12-22 02:47] LABS: HIV INTERPRETATION NEGATIVE (NEGATIVE)
[2024-12-22 02:48] LABS: HCV DIAGNOSTIC IN-HOUSE W/RFLX NON-REACTIVE (NONREACTIVE)
== END 2024-12-22 00:50 | disposition home or self-care (01) ==
LOC: JER 23:15
PROC: 3E0233Z Introduction of Anti-inflammatory into Muscle, Percutaneous Approach (ICD-10-PCS; principal; 2024-12-21)
DX: M25.571 Pain in right ankle and joints of right foot (principal); M25.531 Pain in right wrist; M25.532 Pain in left wrist
CPT/HCPCS: 36415; 86803; 87389; 99284-25